=== PATIENT | male | born 1965 | race Caucasian/White ===

== ENCOUNTER 2017-02-23 14:15 | Emergency (ER) | payer OTHER ==
[~2017-02-23] VITALS: Ht 175.3 cm; Wt 129.7 kg
[~2017-02-23 14:15] MED LIST: ALPRAZOLAM0.5 M3 PO; ASPIRIN EC325 MG PO; ATORVASTATIN CA40 M1 PO; CITALOPRAM HYDR40 MG PO; CLOBETASOL PROP50 ML TOP; CLOPIDOGREL75 M1 PO; COSENTYX (150 MG/1 M; CYCLOBENZAPRINE10 M1 PO; DEPO-TESTADIOL10 ML IM; DIAZEPAM10 M1 PO; DOLOPHINE HCL10 M1 PO; FLEXERIL10 MG PO; FLUOXETINE HCL40 M1 PO; FUROSEMIDE40 MG PO; GABAPENTIN300 MG PO; GABAPENTIN600 M1 PO; HYZAAR 100-251 EACH PO; LIDOCAINE51 TOP; METOPROLOL SUC100 M2 PO; OMEGA-3 1,0501 EACH PO; POTASSIUM CHLO10 ME1 PO; PROTONIX40 M3 PO; STELARA90 MG/ML SC; VALIUM5 M1 PO
[2017-02-23 14:28] VITALS: BP 126/84
--- NOTE | 2017-02-23 17:20 | ED NECK/BACK PAIN COMPLAINT ---
History of Present Illness General Chief Complaint: Low Back Pain/Injury Stated Complaint: LBP/CHRONIC Source: patient Exam Limitations: no limitations Vital Signs & Intake/Output Vital Signs & Intake/Output Vital Signs Date Time Temp Pulse Resp B/P Pulse O2 O2 Flow FiO2 Ox Delivery Rate 02/23 1428 98.1 69 18 126/84 100 Room Air Allergies Coded Allergies: venom-honey bee (bee venom (honey bee)) (SWELLING AT SITE 06/09/16) Uncoded Allergies: ENVIRONMENTAL (ITCHY, WATERY EYES, STUFFY NOSE, DYSPNEA 01/09/16) Reconcile Medications Alprazolam 0.5 MG TAB 1 TAB PO QPM ANXIETY (Reported) Aspirin E.c. (Ecotrin) 325 MG TAB 1 TAB PO DAILY HEART HEALTH Atorvastatin Calcium 40 MG TABLET 40 MG PO 1700 CHOLESTEROL Clobetasol Propionate (Clobetasol Propionate 50 Ml) 50 ML JEANNE 1 GILES TOP PRN PSORIASIS (Reported) CLOPIDOGREL BISULFATE (Clopidogrel) 75 MG TABLET 1 TAB PO DAILY PLATELET INHIBITOR (Reported) Diazepam 10 MG TABLET 1 TAB PO PRN MUSCLE SPASMS (Reported) FLUOXETINE HCL (Fluoxetine Hydrochloride) 40 MG CAP 1 CAP PO DAILY MENTAL HEALTH (Reported) Gabapentin (Gabapentin Tab 600MG) 600 MG TAB 1 TAB PO TID NERVE PAIN ( Reported) LOSARTAN/HYDROCHLOROTHIAZIDE (Hyzaar 100-25 Tablet) 1 EACH TABLET 1 TAB PO DAILY BP (Reported) Methadone Hydrochloride (Dolophine) 10 MG TABLET 3 TAB PO BID SPINAL STENOSIS/ HERNIATED DISC (Reported) Metoprolol Succinate (Metoprolol Succinate XL) 100 MG TAB.ER.24H 1 TAB PO DAILY BP (Reported) Pantoprazole Sodium (Protonix) 40 MG TABLET.DR 40 MG PO DAILY AC GERD Pantoprazole Sodium (Protonix) 40 MG TABLET.DR 1 TAB PO DAILY GERD Secukinumab (Cosentyx (2 Syringes)) 150 MG/1 ML SYRINGE 2 INJ Q30D PSORIASIS (Reported) Testosterone (Depo-Testadiol Inj 2 MG/Ml-50 MG/Ml) 200 MG/ML VIAL 2 ML IM Q2W HRT (Reported) Triage Note: 52 Y/O MALE C/O BACK PAIN ("SPASMS ACROSS THE LOWER BACK"); ONSET LAST NIGHT. STATES HIS PAIN MANAGEMENT DOCTOR GIVES HIM VALIUM FOR WHEN THIS HAPPENS HOWEVER PT WAS UNABLE TO GET APPT AND NEEDS A NOTE FOR WORK. STATES HE HAS THE MEDICATION AT HOME BUT NEEDS THE WORK NOTE. 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 yes HPI: This patient is a 52-year-old male who presented to the emergency department today requesting a work note. The patient was seen by pain management previously and given a prescription for Valium as he throughout his back at work. The patient is reported that he has a medication, but when he tried to see his doctor again for a work note, they were closed. He reported that he is having muscular spasms in his lower back. He denied any bowel or bladder incontinence. No saddle paresthesias. No numbness or tingling in his extremities. (PIPER CANAS PA-C) Past History Travel History Traveled to [place] past 21 day No Medical History Any Pertinent Medical History? 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 No (PIPER CANAS PA-C) Review of Systems Review of Systems Constitutional: Reports: no symptoms. Eyes: Reports: no symptoms. Ears, Nose, Throat, Mouth: Reports: no symptoms. Respiratory: Reports: no symptoms. Cardiovascular: Reports: no symptoms. Gastrointestinal/Abdominal: Reports: no symptoms. Musculoskeletal: Reports: see HPI. Skin: Reports: no symptoms. Neurological/Psychological: Reports: no symptoms. All Other Systems: Reviewed and Negative (PIPER CANAS PA-C) Physical Exam Physical Exam Neck: normal inspection, supple, full range of motion, normal alignment Comments: Well-developed well-nourished person in no acute distress HEENT: Moist mucous membranes Back: Antalgic gait. Bilateral lumbar paraspinal musculature tenderness. No midline tenderness. Muscular spasm noted Respiratory: No respiratory distress. Speaking in full sentences Extremities: No edema, full range of motion Neuro: Alert and oriented x3 Psych: Mood affect normal, normal memory normal judgment. Skin: Warm and dry, no rash on exposed skin (PIPER CANAS PA-C) Progress Differential Diagnosis: cauda equina syn, herniated disc, myofascial strain, pyelo/UTI, sciatica, spinal cord inj, thoracic outlet syn, T/L spine injury, ureterolithiasis Plan of Care: This patient is a 52-year-old male who presented to the emergency department today requesting for a work note. He was previously diagnosed with muscular strain after a work injury. He sees pain management where he was prescribed Valium. The patient is requesting a note for work. He offers no other complaints and has no other requests. Stable for discharge home. (PIPER CANAS PA-C) Departure Departure Disposition: HOME OR SELF CARE Condition: Stable Clinical Impression Primary Impression: Back muscle spasm Referrals: ABIODUN HUGHES,BEAN Vinson (PCP/Family) Additional Instructions: Take previously prescribed medication as directed. Follow-up with your primary care physician. Return for any worsening symptoms or concerns. Departure Forms: Customer Survey General Discharge Information Release- Work (PIPER CANAS PA-C) PA/ACID BLOWER Co-Sign Statement Statement: ED Attending supervision documentation- [] I saw and evaluated the patient. I have also reviewed all the pertinent lab results and diagnostic results. I agree with the findings and the plan of care as documented in the PA's/ACID BLOWER's documentation. [X] I have reviewed the ED Record and agree with the PA's/ACID BLOWER's documentation. [] Additions or exceptions (if any) to the PAs/ACID BLOWER's note and plan are summarized below: [] (DENNISE HUGHES,TORITO [place])
== END 2017-02-23 17:23 ==
LOC: ERH 14:15
DX: M62.830 Muscle spasm of back (principal)
CPT/HCPCS: 99282

== ENCOUNTER 2017-03-07 11:59 | Observation (INO) | payer OTHER ==
[~2017-03-07] VITALS: Ht 175.3 cm; Wt 127.0 kg
[2017-03-07 13:18] LABS: ABSOLUTE BASOPHIL COUNT 0 /CUMM (0.0-0.2); ABSOLUTE EOSINOPHIL COUNT 0.1 /CUMM (0.0-0.7); ABSOLUTE LYMPH COUNT 1.4 /CUMM (1.2-3.4); ABSOLUTE MONOCYTE COUNT 0.4 /CUMM (0.10-0.60); BASOPHIL % 0.7 % (0.0-2.0); EOSINOPHIL % 1.3 % (0-5); GRANULOCYTE % 60.4 % (42.2-75.2); HEMATOCRIT 45.7 % (42-52); MEAN CORPUSCULAR HGB 27.1 PG (27.0-31.0); MEAN PLATELET VOLUME 7.1 FL (7.4-10.4); PLATELET COUNT 177 /CUMM (130-400); RBC DISTRIBUTION WIDTH 14.8 % (11.5-14.5); RED BLOOD CELL CT 5.58 /CUMM (4.70-6.10); WHITE BLOOD CELL COUNT 4.9 /CUMM (4.8-10.8)
--- NOTE | 2017-03-07 13:38 | ED CARDIAC/CP/PALPITATIONS ---
History of Present Illness General Chief Complaint: General Adult Stated Complaint: INDIGESTION SINCE SAT, LEFT ARM NUMBNESS Source: patient, old records Exam Limitations: no limitations Vital Signs & Intake/Output Vital Signs & Intake/Output Vital Signs Date Time Temp Pulse Resp B/P Pulse O2 O2 Flow FiO2 Ox Delivery Rate 03/07 1903 98.9 72 20 172/100 95 Room Air 03/07 1704 68 164/98 03/07 1704 68 164/98 03/07 1650 164/98 03/07 1624 99.8 74 22 181/102 96 Room Air 03/07 1509 98.0 81 20 164/102 03/07 1420 74 18 184/93 96 Room Air 03/07 1356 99.0 74 18 173/105 100 03/07 1310 Room Air 03/07 1205 96.0 83 20 156/106 96 Room Air Allergies Coded Allergies: venom-honey bee (bee venom (honey bee)) (SWELLING AT SITE 06/09/16) Uncoded Allergies: ENVIRONMENTAL (ITCHY, WATERY EYES, STUFFY NOSE, DYSPNEA 01/09/16) Reconcile Medications Atorvastatin Calcium 40 MG TABLET 40 MG PO 1700 CHOLESTEROL Clopidogrel Bisulfate (Clopidogrel) 75 MG TABLET 1 TAB PO DAILY BLOOD THINNER (Reported) Diazepam 10 MG TABLET 1 TAB PO PRN BACK SPASMS (Reported) Fluoxetine HCl (Unknown Strength) CAPSULE (Unknown Dose) PO DAILY MENTAL HEALTH (Reported) Gabapentin 600 MG TABLET 1 TAB PO TID NERVE PAIN (Reported) Glipizide (Glipizide ER) 2.5 MG TAB.ER.24 1 TAB PO DAILY DM (Reported) Losartan/Hydrochlorothiazide (Hyzaar 100-25 Tablet) 100 MG-25 MG TABLET 1 TAB PO DAILY BP (Reported) Methadone HCl (Dolophine HCl) 10 MG TABLET 30 MG PO BID SPINAL STENOSIS/ HERNIATED DISC (Reported) Metoprolol Succinate 100 MG TAB.ER.24H 1 TAB PO DAILY HEART/BP (Reported) Pantoprazole Sodium (Protonix) 40 MG TABLET.DR 1 TAB PO DAILY GERD Secukinumab (Cosentyx (2 Syringes)) 150 MG/1 ML SYRINGE 2 INJ Q30D PSORIASIS (Reported) Triage Note: PT TO ED C/O INDIGESTION SINCE TUESDAY. HAS BEEN TAKING PEPTOBISMOL WITH NO RELIEF. PT ALSO TAKES PROTONIX DAILY. ALSO C/O LEFT ARM NUMBNESS. DENIES ANY PAIN. Triage Nurses Notes Reviewed? yes Onset: Abrupt Duration: day(s): (3), constant, waxing and waning Timing: recent history Quality/Severity: mild, moderate, burning, ingestion Location: epigastric Radiation: no radiation Activities at Onset: none Prior Chest Pain/Card Workup: similar sx Nitro Today/Relief: no nitro taken today Aspirin Today: 81 mg x 1, provided at home HPI: 52 Year old male with history of hypertension, hyperlipidemia, chronic pain issues, psoriasis, reflux disease, and a prior stent in 2007 presents emergency room complaining of a "indigestion" feeling as well as nausea for the past 3 days. The patient denies any radiation of pain up into his chest and states that he feels bloated that this feels like the reflux he has had in the past. He denies any shortness of breath the symptoms are not worse with exertion. He' s been taking Protonix and Pepto-Bismol without improvement. No back pain cough hemoptysis vomiting diarrhea. 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 he quit smoking 1 year ago. he has been compliant with all of his medications including asa and plavix which he took today Past History Travel History Traveled to [place] past 21 day No Medical History Any Pertinent Medical History? 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 No Review of Systems Review of Systems Constitutional: Reports: see HPI. All Other Systems: Reviewed and Negative Comments Review of systems: See HPI, All other systems negative. Constitutional, no chills no fever, no malaise HEENT: No visual changes no sore throat no congestion Cardiovascular: No chest pain , no palpitation , no orthopnea no ankle swelling Skin, no jaundice no rashes, no change in skin Respiratory: No dyspnea no cough no sputum no hemoptysis GI: nausea no vomiting, no diarrhea, no bloating/constipation : No dysuria Muscle skeletal: No joint pain, no back pain, no neck pain, Neurologic: No numbness no headache Psych: No stress Heme/endocrine: No bruising no bleeding Immunology: No lymphadenopathy Physical Exam Physical Exam General Appearance: well developed/nourished, no apparent distress, alert Cardiovascular: regular rate/rhythm Comments: Well-developed well-nourished person in no acute distress HEENT: Normal EENT exam; PERRL, EOMI, HEAD is atraumatic. moist mucous membranes. Neck: Supple, normal range of motion Back: Nontender, Full range of motion Cardiovascular: Regular rate and rhythms no murmurs rubs or gallops Respiratory: Chest nontender.There were no bony deformities, no asymmetry. No respiratory distress. Patient speaking in full complete sentences. Breath sounds clear to auscultation bilaterally: NO W/R/R Abdomen: Soft, nontender nondistended, no appreciable organomegaly. Normal bowel sounds. No rebound/guarding, Extremity: No edema, full range of motion of extremities Neuro: Alert oriented x3, motor sensory normal,There were no obvious focal neurologic abnormalities. Skin: No appreciable rash on exposed skin, skin is warm and dry. Psych: Mood and affect is normal, memory and judgment is normal. Core Measures ACS in differential dx? Yes Severe Sepsis Present: No Septic Shock Present: No Progress Differential Diagnosis: AMI, aortic dissection, atrial fibrillation, cholecystitis, CHF/pulm edema, costochondritis, musculoskeletal pain, myocarditis, pancreatitis, pericarditis, pneumonia, pneumothorax, PSVT, pulmonary embolism, PUD/GERD, PVCs/PACs, unstable angina, V-fib/V-Tach, KIDNEY STONE Plan of Care: Orders Procedure Date/time Status Heart Healthy Diet 03/[address] in observation 03/07 1836 Active Patient Data 03/07 1833 Active TROPONIN LEVEL 03/07 1700 Complete EKG 03/07 1700 Active URINALYSIS 03/07 1539 Active Add-on Test (ER Only) 03/07 1418 Active Telemetry/Machine Deburrer 03/07 1330 Active LIPASE 03/07 1308 Complete AMYLASE 03/07 1308 Complete TROPONIN LEVEL 03/07 1303 Complete COMPREHENSIVE METABOLIC PANEL 03/07 1303 Complete CBC WITHOUT DIFFERENTIAL 03/07 1303 Complete EKG 03/07 1208 Active Laboratory Tests 03/07/17 1715: Troponin I < 0.01 03/07/17 1308: Anion Gap 11, Estimated GFR > 60, BUN/Creatinine Ratio 16.7, Glucose 129 H, Calcium 9.1, Total Bilirubin 0.6, AST 34, ALT 58, Alkaline Phosphatase 107, Troponin I < 0.01, Total Protein 7.5, Albumin 4.0, Globulin 3.5, Albumin/ Globulin Ratio 1.1, Amylase 50, Lipase 48, CBC w Diff NO MAN DIFF REQ, RBC 5.58, MCV 82.0, MCH 27.1, RDW 14.8 H, MPV 7.1 L, Gran % 60.4, Lymphocytes % 28.5, Monocytes % 9.1, Eosinophils % 1.3, Basophils % 0.7, Absolute Granulocytes 3.0, Absolute Lymphocytes 1.4, Absolute Monocytes 0.4, Absolute Eosinophils 0.1, Absolute Basophils 0, PUBS MCHC 33.0 Labs ordered old record reviewed Pepcid IV GI cocktail 1 ordered case discussed with Dr. Leone 03/07/2017 1:48:30 PM Case discussed with Dr. Vuong in Department who reviewed the EKG and saw the patient advised we'll get 2 troponins the patient reports improvement in symptoms with GI cocktail currently if symptoms return we'll treat with nitroglycerin 03/07/2017 2:23:39 PM patient reports pain is returning after GI cocktail NITRO1 ordered discussed the patient all his labs date and need for repeat troponin EKG at 5:00 03/07/2017 3:47:30 PM call to the patient's room after he attempted to urinate he states that he is having extreme dysuria, denies hematuria urgency frequency. These symptoms suddenly came on while here in the ER. Patient has persistent left upper quadrant pain however improved after Protonix Toradol CAT scan ordered case discussed Dr. Leone Case discussed with Dr. Vuong given repeat troponin was place in observation to telemetry. case d/w dr arriola will place in obs (TYSON HUBER) Diagnostic Imaging: Viewed by Me: Radiology Read. Discussed w/RAD: Radiology Read. Radiology Impression: PATIENT: NERY CHAUHAN PRESENT AGE: 52 PATIENT ACCOUNT NO: [id number] : 64 LOCATION: ER ORDERING PHYSICIAN: TYSON AREVALO SERVICE DATE: 03/07/17 EXAM TYPE: RAD - XRY-PORTABLE CHEST XRAY EXAMINATION: XR PORTABLE CHEST CLINICAL INFORMATION: Chest pain COMPARISON: 05/04/2016 TECHNIQUE: Portable AP view of the chest was obtained. FINDINGS: The lungs are well expanded. There is no focal consolidation, edema, or effusion. No pneumothorax. The cardiomediastinal silhouette is within normal limits for this technique. No acute osseous abnormality. IMPRESSION: No acute pulmonary findings. DICTATED BY: RACHEL RODRIGUEZ MD DATE/TIME DICTATED:03/07/171429 SUPERVISOR LENS GENERATING:KUSH DATE/ TIME TRANSCRIBED:03/07/171429 CONFIDENTIAL, DO NOT COPY WITHOUT APPROPRIATE AUTHORIZATION. <Electronically signed in Other Vendor System> SIGNED BY: RACHEL RODRIGUEZ MD 03/07/17 1436, PATIENT: NERY CHAUHAN PRESENT AGE: 52 PATIENT ACCOUNT NO: [id number] : 64 LOCATION: [facility] ORDERING PHYSICIAN: TYSON AREVALO SERVICE DATE: 03/07/17 EXAM TYPE: CAT - CT ABD & PELVIS W/O IV CONTRAS EXAMINATION: CT ABDOMEN AND PELVIS WITHOUT CONTRAST CLINICAL INFORMATION: Left upper quadrant abdominal pain. Evaluate for pancreatitis and/or kidney stone. COMPARISON: 09/09/2016. TECHNIQUE: Multidetector volumetric imaging was performed from the superior aspect of the liver through the pubic symphysis. Sagittal and coronal reformatted images were obtained on the technologist's workstation. 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 LUNG BASES: No acute findings in the visualized lung bases. There appears to be a stent within the proximal left anterior descending coronary artery. A stable 0.3 cm nodule is present within the left lower lobe (image 21, series 2). LIVER, GALLBLADDER, AND BILIARY TREE: There is hepatomegaly and diffuse hepatic steatosis. No suspicious hepatic lesion or intrahepatic bile duct dilatation. Gallbladder is unremarkable. PANCREAS: No evidence of pancreatic ductal dilatation, peripancreatic edema or peripancreatic fluid collection. SPLEEN: Prominent spleen is 15 cm in maximum dimension. ADRENAL GLANDS: Unremarkable. KIDNEYS AND URETERS: The kidneys are normal in size, shape, and attenuation. No hydronephrosis, hydroureter, or calculi seen. No perinephric stranding. BLADDER: Urinary bladder is empty. No bladder calculi. GASTROINTESTINAL TRACT: Stomach is well distended and has normal wall thickness. Loops of bowel are normal in caliber. The terminal ileum and appendix are normal. No pericolonic fat stranding. Diverticulosis of the sigmoid colon without diverticulitis. No ascites or pneumoperitoneum. ABDOMINAL WALL: Again noted is the mesh in the midline of the abdominal wall and chronic diastases of the rectus abdominis muscles. There is a stable fat-containing hernia in the supraumbilical midline abdominal wall. LYMPH NODES: No pathologic sized lymph nodes within the abdomen or pelvis. VASCULAR: Mild atherosclerotic calcification of the abdominal aorta without aneurysm. PELVIC VISCERA: Prostate gland is normal in size. No pelvic free fluid. OSSEOUS STRUCTURES: There are 6 nonrib-bearing vertebra of the degenerated lumbar spine. There is right-sided transitional lumbosacral anatomy. At the L4-L5 level, there is moderate degenerative disc space narrowing, disc bulge and vacuum disc phenomenon. Facet arthropathy is most pronounced at the L5-L6 level. IMPRESSION: 1. Chronic hepatosplenomegaly and diffuse hepatic steatosis. 2. Diverticulosis of the sigmoid colon without diverticulitis. 3. No evidence of urolithiasis, appendicitis or other acute imaging abnormality compared to 09/09/2016. DICTATED BY: ENA COMER MD DATE/TIME DICTATED:03/07/171627 SUPERVISOR LENS GENERATING: KUSH DATE/TIME TRANSCRIBED:03/07/171627 CONFIDENTIAL, DO NOT COPY WITHOUT APPROPRIATE AUTHORIZATION. <Electronically signed in Other Vendor System> SIGNED BY: ENA COMER MD 03/07/17 1644 Initial ED EKG: normal sinus at 70, no acute ST segment changes normal axis Prior EKG: unchanged (04/2016) Repeat EKG: unchanged (NS CHANGES) Rhythm Strip: normal sinus rhythm Departure Departure Time of Disposition: 1825 Disposition: STILL A PATIENT Condition: Stable Clinical Impression Primary Impression: Chest pain Secondary Impressions: Hepatic steatosis Referrals: BEAN RASCON MD (PCP/Family) Departure Forms: Customer Survey General Discharge Information Observation Note Spoke With: PETE GARCIA MD Physician Advisor Notified: LUIS FELIPE HUGHES,CAROLYN [place] Place Patient In: Non-ED OBS Care Area Rationale for Observation: My rational for observation is as follows trend labs telemetry monitoring cardiology consult possible stress test versus echocardiogram premature discharge would BE medically harmful Critical Care Note Critical Care Note Critical Care Time: non-applicable
--- NOTE | 2017-03-07 14:36 | RADIOLOGY REPORT ---
EXAMINATION: XR PORTABLE CHEST CLINICAL INFORMATION: Chest pain COMPARISON: 05/04/2016 TECHNIQUE: Portable AP view of the chest was obtained. FINDINGS: The lungs are well expanded. There is no focal consolidation, edema, or effusion. No pneumothorax. The cardiomediastinal silhouette is within normal limits for this technique. No acute osseous abnormality. IMPRESSION: No acute pulmonary findings.
[2017-03-07] MEDS ORDERED: GLIPIZIDE ER2.5 M1 PO (15:47)
--- NOTE | 2017-03-07 16:43 | CT SCAN REPORT ---
EXAMINATION: CT ABDOMEN AND PELVIS WITHOUT CONTRAST CLINICAL INFORMATION: Left upper quadrant abdominal pain. Evaluate for pancreatitis and/or kidney stone. COMPARISON: 09/09/2016. TECHNIQUE: Multidetector volumetric imaging was performed from the superior aspect of the liver through the pubic symphysis. Sagittal and coronal reformatted images were obtained on the technologist's workstation. DLP: 1432 mGy-cm FINDINGS: TARPER: Obese body habitus. LUNG BASES: No acute findings in the visualized lung bases. There appears to be a stent within the proximal left anterior descending coronary artery. A stable 0.3 cm nodule is present within the left lower lobe (image 21, series 2). LIVER, GALLBLADDER, AND BILIARY TREE: There is hepatomegaly and diffuse hepatic steatosis. No suspicious hepatic lesion or intrahepatic bile duct dilatation. Gallbladder is unremarkable. PANCREAS: No evidence of pancreatic ductal dilatation, peripancreatic edema or peripancreatic fluid collection. SPLEEN: Prominent spleen is 15 cm in maximum dimension. ADRENAL GLANDS: Unremarkable. KIDNEYS AND URETERS: The kidneys are normal in size, shape, and attenuation. No hydronephrosis, hydroureter, or calculi seen. No perinephric stranding. BLADDER: Urinary bladder is empty. No bladder calculi. GASTROINTESTINAL TRACT: Stomach is well distended and has normal wall thickness. Loops of bowel are normal in caliber. The terminal ileum and appendix are normal. No pericolonic fat stranding. Diverticulosis of the sigmoid colon without diverticulitis. No ascites or pneumoperitoneum. ABDOMINAL WALL: Again noted is the mesh in the midline of the abdominal wall and chronic diastases of the rectus abdominis muscles. There is a stable fat-containing hernia in the supraumbilical midline abdominal wall. LYMPH NODES: No pathologic sized lymph nodes within the abdomen or pelvis. VASCULAR: Mild atherosclerotic calcification of the abdominal aorta without aneurysm. PELVIC VISCERA: Prostate gland is normal in size. No pelvic free fluid. OSSEOUS STRUCTURES: There are 6 nonrib-bearing vertebra of the degenerated lumbar spine. There is right-sided transitional lumbosacral anatomy. At the L4-L5 level, there is moderate degenerative disc space narrowing, disc bulge and vacuum disc phenomenon. Facet arthropathy is most pronounced at the L5-L6 level. IMPRESSION: 1. Chronic hepatosplenomegaly and diffuse hepatic steatosis. 2. Diverticulosis of the sigmoid colon without diverticulitis. 3. No evidence of urolithiasis, appendicitis or other acute imaging abnormality compared to 09/09/2016.
--- NOTE | 2017-03-07 18:42 | Cons- Cardiology ---
General Information and HPI Consulting Request Date of Consult: 03/07/17 Requested By: mg AREVALO Reason for Consult: Persistent chest discomfort with history of CAD Source of Information: patient, old records History of Present Illness: 52 year old male known to me with history of CAD. History of proximal LAD stent in 2007. Subsequently recathed in 2008 and 2010. Stent patent at that time but residual 50-70% distal LAD stenosis present with no other significant obstructive CAD at that time. Last year the patient had a pharmacologic nuclear stress test performed in preparation for surgery which showed inferior abnormalities that were likley related to diaphragmatic artifact. The patient tolerated the surgery without issues and has been stable since that time up until the last several days . He now presents to the ER with complaints of epigastric / substernal chest discomfort radiating to the neck with associated left arm and shoulder symptoms. In the ER the patient's ECG showed no significant change and the initial troponin was normal despite 3-4 days of waxing and waning symptoms. He was given multiple meds including a GI cocktail and TNG SL with transient but incomplete relief of the symptoms. Followuop ECG and troponin remained unremarkable. Allergies/Medications Allergies: Coded Allergies: venom-honey bee (bee venom (honey bee)) (SWELLING AT SITE 06/09/16) Uncoded Allergies: ENVIRONMENTAL (ITCHY, WATERY EYES, STUFFY NOSE, DYSPNEA 01/09/16) Home Med List: Atorvastatin Calcium 40 MG TABLET 40 MG PO 1700 CHOLESTEROL Clopidogrel Bisulfate (Clopidogrel) 75 MG TABLET 1 TAB PO DAILY BLOOD THINNER (Reported) Diazepam 10 MG TABLET 1 TAB PO PRN BACK SPASMS (Reported) Fluoxetine HCl (Unknown Strength) CAPSULE (Unknown Dose) PO DAILY MENTAL HEALTH (Reported) Gabapentin 600 MG TABLET 1 TAB PO TID NERVE PAIN (Reported) Glipizide (Glipizide ER) 2.5 MG TAB.ER.24 1 TAB PO DAILY DM (Reported) Losartan/Hydrochlorothiazide (Hyzaar 100-25 Tablet) 100 MG-25 MG TABLET 1 TAB PO DAILY BP (Reported) Methadone HCl (Dolophine HCl) 10 MG TABLET 30 MG PO BID SPINAL STENOSIS/ HERNIATED DISC (Reported) Metoprolol Succinate 100 MG TAB.ER.24H 1 TAB PO DAILY HEART/BP (Reported) Pantoprazole Sodium (Protonix) 40 MG TABLET.DR 1 TAB PO DAILY GERD Secukinumab (Cosentyx (2 Syringes)) 150 MG/1 ML SYRINGE 2 INJ Q30D PSORIASIS (Reported) Current Medications: Current Medications Sig/Mani Start time Last Medication Dose Route Stop Time Status Admin Famotidine 0 .STK-MED ONE 03/07 1341 DC IV Famotidine 20 MG ONCE ONE 03/07 1330 DC 03/07 IV 03/07 1331 1340 Hydrochlorothiazide 25 MG ONCE ONE 03/07 1700 DC 03/07 PO 03/07 1701 1704 Ketorolac 0 .STK-MED ONE 03/07 1520 DC Tromethamine .ROUTE Ketorolac 30 MG ONCE ONE 03/07 1515 DC 03/07 Tromethamine IV 03/07 1516 1524 Losartan Potassium 100 MG ONCE ONE 03/07 1700 DC 03/07 PO 03/07 1701 1704 Losartan Potassium 0 .STK-MED ONE 03/07 1659 DC PO Metoprolol Tartrate 100 MG ONCE ONE 03/07 1700 DC 03/07 PO 03/07 1701 1704 Metoprolol Tartrate 0 .STK-MED ONE 03/07 1659 DC PO Nitroglycerin 0.4 MG ONCE ONE 03/07 1430 DC 03/07 SL 03/07 1431 1422 Nitroglycerin 0 .STK-MED ONE 03/07 1421 DC SL Pantoprazole Sodium 0 .STK-MED ONE 03/07 1521 DC IV Pantoprazole Sodium 40 MG ONCE ONE 03/07 1515 DC 03/07 IV 03/07 1516 1524 Past History Travel History Traveled to [place] past 21 day No Medical History Neurological: NONE EENT: NONE Cardiovascular: CAD, hypertension, hyperlipidemia, STENTS 2007 Respiratory: obstructive sleep apnea Gastrointestinal: diverticulitis, GERD Hepatic: NONE Renal: NONE Musculoskeletal: chronic back pain, disk herniation, SPINAL STENOSIS ARTHRITIS Psychiatric: anxiety, depression Endocrine: PRE-DIABETIC Blood Disorders: NONE Cancer(s): NONE RESEARCH AND DEVELOPMENT DIRECTOR/Reproductive: NONE Other Medical Hx: PSORIASIS Surgical History Surgical History: hernia repair-umbilical, heart stents in 2007 Psychosocial History Services at Home: None ETOH Use: occasional use Illicit Drug Use: denies illicit drug use Exam & Diagnostic Data Vital Signs and I&O Vital Signs Date Time Temp Pulse Resp B/P Pulse O2 O2 Flow FiO2 Ox Delivery Rate 03/07 1704 68 164/98 03/07 1704 68 164/98 04/10 1650 164/98 03/07 1624 99.8 74 22 181/102 96 Room Air 03/07 1509 98.0 81 20 164/102 03/07 1420 74 18 184/93 96 Room Air 03/07 1356 99.0 74 18 173/105 100 03/07 1310 Room Air 03/07 1205 96.0 83 20 156/106 96 Room Air Intake & Output 03/07 1600 03/07 0800 03/07 0000 03/06 1600 03/06 0800 03/06 0000 Intake Total Output Total Balance Patient 280 lb Weight Physical Exam: WD, WN, WM Alert and oriented x 3 VSS Overweight. ? mildly Cushingoid appearance HEENT: normal Neck: JVP normal; carotids normal bilaterally Chest: Clear bilaterally with no chest wall tenderness Heart: Regular S1, S2, 1/6 systolic murmur Abdomen: Mild diffuse tenderness; No rebound; BS+ Ext: Normal Labs/Moise Results: Laboratory Tests 03/07 03/07 1715 1308 Chemistry Sodium (137 - 145 mmol/L) 137 Potassium (3.5 - 5.1 mmol/L) 3.8 Chloride (98 - 107 mmol/L) 96 L Carbon Dioxide (22 - 30 mmol/L) 30 Anion Gap (5 - 16) 11 BUN (9 - 20 mg/dL) 10 Creatinine (0.7 - 1.2 mg/dL) 0.6 L Estimated GFR (>60 ml/min) > 60 BUN/Creatinine Ratio (7 - 25 %) 16.7 Glucose (65 - 99 mg/dL) 129 H Calcium (8.4 - 10.2 mg/dL) 9.1 Total Bilirubin (0.2 - 1.3 mg/dL) 0.6 AST (17 - 59 U/L) 34 ALT (21 - 72 U/L) 58 Alkaline Phosphatase (< 127 U/L) 107 Troponin I (<0.11 ng/ml) < 0.01 < 0.01 Total Protein (6.3 - 8.2 g/dL) 7.5 Albumin (3.5 - 5.0 g/dL) 4.0 Globulin (1.9 - 4.2 gm/dL) 3.5 Albumin/Globulin Ratio (1.1 - 2.2 %) 1.1 Amylase (30 - 110 U/L) 50 Lipase (23 - 300 U/L) 48 Hematology CBC w Diff NO MAN DIFF REQ WBC (4.8 - 10.8 /CUMM) 4.9 RBC (4.70 - 6.10 /CUMM) 5.58 Hgb (14.0 - 18.0 G/DL) 15.1 Hct (42 - 52 %) 45.7 MCV (80.0 - 94.0 FL) 82.0 MCH (27.0 - 31.0 PG) 27.1 RDW (11.5 - 14.5 %) 14.8 H Plt Count (130 - 400 /CUMM) 177 MPV (7.4 - 10.4 FL) 7.1 L Gran % (42.2 - 75.2 %) 60.4 Lymphocytes % (20.5 - 51.1 %) 28.5 Monocytes % (1.7 - 9.3 %) 9.1 Eosinophils % (0 - 5 %) 1.3 Basophils % (0.0 - 2.0 %) 0.7 Absolute Granulocytes (1.4 - 6.5 /CUMM) 3.0 Absolute Lymphocytes (1.2 - 3.4 /CUMM) 1.4 Absolute Monocytes (0.10 - 0.60 /CUMM) 0.4 Absolute Eosinophils (0.0 - 0.7 /CUMM) 0.1 Absolute Basophils (0.0 - 0.2 /CUMM) 0 PUBS MCHC (33.0 - 37.0 G/DL) 33.0 Diagnostic Data EKG Results NSR with NSSTTWCs. CXR Results FINDINGS: The lungs are well expanded. There is no focal consolidation, edema, or effusion. No pneumothorax. The cardiomediastinal silhouette is within normal limits for this technique. No acute osseous abnormality. IMPRESSION: No acute pulmonary findings. Other Results Abdominal CT: IMPRESSION: 1. Chronic hepatosplenomegaly and diffuse hepatic steatosis. 2. Diverticulosis of the sigmoid colon without diverticulitis. 3. No evidence of urolithiasis, appendicitis or other acute imaging 4. No AAA abnormality compared to 09/09/2016. Assessment/Plan Assessment/Plan Assessment: 1. Chest pain syndrome - At the present time the patient's symptoms are of unclear etiology. The patient feels that they are likely GI in nature with frequent belching and a sense of nausea. He had temporary relief with GI cocktail, etc but the symptoms recurred. He also had transient improvement with TNG SL. I suspect that the symptoms are unlikely to be cardiac in nature in view of their protracted nature with no ECG changes or troponin elevation. However, he does have a history of distal LAD disease and apical abnormalities may be electrocardiographically "silent". 2. History of CAD; History of LAD stent 2007 3. HTN 4. HLD 5. ANGELA 6. GERD Recommendations: - Admit to telemetry - Serial troponins - Serial ECGS - Continue GI meds - Consider formal GI evaluation - Echocardiogram - Add TNG paste q6 hours - COntinue other cardiac meds - NO IV heparin for now in the absence of any demostrable evidence of ischemia. - Further plans after the above. ? further cardiac evaluation with repeat stress test or cardiac cath to be decided upon. Consult Acknowledgment - Thank you for your consult request.
--- NOTE | 2017-03-07 20:00 | History & Physical ---
YOSI HUGHES,[facility] 03/07/171958: General Information and HPI MD Statement: I have seen and personally examined NERY CHAUHAN and documented this H& P. The patient is a 52 year old M who presented with a patient stated chief complaint of [HEARTBURN, ABDOMINAL PAIN]. Source of Information: patient, old records History of Present Illness: Patient is a 52 year old gentleman with PMH of HTN, HLD, CAD s/p stents placed in 2007, DM, psoriasis, GERD, who came to the ED due to heartburn and abdominal pain. Patient reports that since Tuesday am he started to have symptoms of bloating and abdominal discomfort, he was also nauseous, took some Maalox and decided to stay home, next day his symptoms were improved and he was able to take small amount of food. This morning the patient started to have same symptoms again with bloating, abdominal discomfort and heartburn. He had to drop his 24h urine sample at the office of Dr. 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 In the ED he received a GI cocktail which did not improve his symptoms, he reports relief of symptoms after a SL nitroglycerin. He denies chest tightness, palpitation, diaphoresis, SOB, dizziness. Denies fever, chills, back pain. Patient reports having epigastric pain and lower chest pain (5/10) on Tuesday which then moved to lower abdomen and currently has no pain. Patient reports burning pain with urination that happened two times while in the ED. He reports no numbness or tingling sensation in the left arm currently. Allergies/Medications Allergies: Coded Allergies: venom-honey bee (bee venom (honey bee)) (SWELLING AT SITE 06/09/16) Uncoded Allergies: ENVIRONMENTAL (ITCHY, WATERY EYES, STUFFY NOSE, DYSPNEA 01/09/16) Home Med list Atorvastatin Calcium 40 MG TABLET 40 MG PO 1700 CHOLESTEROL Clopidogrel Bisulfate (Clopidogrel) 75 MG TABLET 1 TAB PO DAILY BLOOD THINNER (Reported) Diazepam 10 MG TABLET 1 TAB PO PRN BACK SPASMS (Reported) Fluoxetine HCl (Unknown Strength) CAPSULE 20 MG PO DAILY MENTAL HEALTH ( Reported) Gabapentin 600 MG TABLET 1 TAB PO TID NERVE PAIN (Reported) Glipizide (Glipizide ER) 2.5 MG TAB.ER.24 1 TAB PO DAILY DM (Reported) Losartan/Hydrochlorothiazide (Hyzaar 100-25 Tablet) 100 MG-25 MG TABLET 1 TAB PO DAILY BP (Reported) Methadone HCl (Dolophine HCl) 10 MG TABLET 30 MG PO BID SPINAL STENOSIS/ HERNIATED DISC (Reported) Metoprolol Succinate 100 MG TAB.ER.24H 1 TAB PO DAILY HEART/BP (Reported) Pantoprazole Sodium (Protonix) 40 MG TABLET.DR 1 TAB PO DAILY GERD Secukinumab (Cosentyx (2 Syringes)) 150 MG/1 ML SYRINGE 2 INJ Q30D PSORIASIS (Reported) Past History Travel History Traveled to [place] past 21 day No Medical History Neurological: NONE EENT: NONE Cardiovascular: CAD, hypertension, hyperlipidemia, STENTS 2007 Respiratory: obstructive sleep apnea Gastrointestinal: diverticulitis, GERD Hepatic: NONE Renal: NONE Musculoskeletal: chronic back pain, disk herniation, SPINAL STENOSIS ARTHRITIS Psychiatric: anxiety, depression Endocrine: PRE-DIABETIC Blood Disorders: NONE Cancer(s): NONE PACKER AND CARRY OUT/Reproductive: NONE Other Medical Hx: PSORIASIS History of MRSA: No History of VRE: No History of CDIFF: No Surgical History Surgical History: hernia repair-umbilical, heart stents in 2007 Past Family/Social History Family History Relations & Conditions if any FATHER FH: HTN (hypertension) FH: myocardial infarction MOTHER FH: HTN (hypertension) FH: myocardial infarction Psychosocial History Services at Home: None Smoking Status: Former Smoker (quit 1 year ago) ETOH Use: occasional use Illicit Drug Use: denies illicit drug use Functional Ability Ambulation: independent Review of Systems Review of Systems Constitutional: Denies: chills, fever. Neurological/Psychological: Reports: numbness, tingling (left arm). Hematologic/Endocrine: Reports: no symptoms. Immunologic/Allergic: Reports: no symptoms. Exam & Diagnostic Data Last 24 Hrs of Vital Signs/I&O Vital Signs Date Time Temp Pulse Resp B/P Pulse O2 O2 Flow FiO2 Ox Delivery Rate 03/07 2337 60 157/84 03/07 2224 62 16 138/80 95 Room Air 03/07 1952 170/100 03/07 1903 98.9 72 20 172/100 95 Room Air 03/07 1704 68 164/98 03/07 1704 68 164/98 03/07 1650 164/98 03/07 1624 99.8 74 22 181/102 96 Room Air 03/07 1509 98.0 81 20 164/102 03/07 1420 74 18 184/93 96 Room Air 03/07 1356 99.0 74 18 173/105 100 03/07 1310 Room Air 03/07 1205 96.0 83 20 156/106 96 Room Air Intake & Output 03/08 0800 03/08 0000 03/07 1600 Intake Total Output Total Balance Patient 127.006 kg Weight Physical Exam General Appearance Alert, Oriented X3, Cooperative, No Acute Distress Skin No Rashes, No Breakdown, No Significant Lesion HEENT Atraumatic, EOMI, Mucous Membr. moist/pink Neck Supple, No JVD, buffalo hump Cardiovascular Regular Rate, Normal S1, Normal S2, No Murmurs Lungs Clear to Auscultation, Normal Air Movement Abdomen Soft, No Tenderness Neurological Normal Speech, Strength at 5/5 X4 Ext, Normal Tone, Sensation Intact, Cranial Nerves 3-12 NL Extremities No Edema, Normal Pulses, No Tenderness/Swelling, no CVA tendreness in the flanks Vascular Pulses Symmetrical Last 24 Hrs of Labs/Moise: Laboratory Tests 03/07/17 2302: Troponin I < 0.01 03/07/172024: Urine Color YEL, Urine Clarity CLEAR, Urine pH 5.5, Ur Specific [place] >= 1.030 , Urine Protein 30 H, Urine Ketones NEG, Urine Nitrite NEG, Urine Bilirubin NEG , Urine Urobilinogen 0.2, Ur Leukocyte Esterase NEG, Ur Microscopic SEDIMENT EXAMINED, Urine RBC RARE, Urine Bacteria RARE H, Hyaline Casts 5-10 H, Urine Mucus FEW, Urine Hemoglobin TRACE-INTACT H, Urine Glucose NEG 03/07/17 1715: Troponin I < 0.01 03/07/17 1308: Anion Gap 11, Estimated GFR > 60, BUN/Creatinine Ratio 16.7, Glucose 129 H, Calcium 9.1, Total Bilirubin 0.6, AST 34, ALT 58, Alkaline Phosphatase 107, Troponin I < 0.01, Total Protein 7.5, Albumin 4.0, Globulin 3.5, Albumin/ Globulin Ratio 1.1, Amylase 50, Lipase 48, CBC w Diff NO MAN DIFF REQ, RBC 5.58, MCV 82.0, MCH 27.1, RDW 14.8 H, MPV 7.1 L, Gran % 60.4, Lymphocytes % 28.5, Monocytes % 9.1, Eosinophils % 1.3, Basophils % 0.7, Absolute Granulocytes 3.0, Absolute Lymphocytes 1.4, Absolute Monocytes 0.4, Absolute Eosinophils 0.1, Absolute Basophils 0, PUBS MCHC 33.0 Microbiology 03/07 2046 URINE ROUT: Urine Culture - ORD Diagnostic Data EKG Results NSR with NSSTTWCs. CXR Results FINDINGS: The lungs are well expanded. There is no focal consolidation, edema, or effusion. No pneumothorax. The cardiomediastinal silhouette is within normal limits for this technique. No acute osseous abnormality. IMPRESSION: No acute pulmonary findings. Other Results Abdominal CT: IMPRESSION: 1. Chronic hepatosplenomegaly and diffuse hepatic steatosis. 2. Diverticulosis of the sigmoid colon without diverticulitis. 3. No evidence of urolithiasis, appendicitis or other acute imaging 4. No AAA abnormality compared to 09/09/2016. Assessment/Plan Assessment: Patient is a 52 year old gentleman with PMH of HTN, HLD, CAD s/p stents placed in 2007, DM, psoriasis, GERD, who came to the ED due to 3 days of having heartburn and abdominal pain. He also reported a transient numbness and tingling in the left arm. He also reported 2 episodes of burning with urine. UA shows bacteria, trace Hb and Pr. Problem list and plan: Atypical chest pain Mostly heartburn and a transient left arm tingling sensation, no chest tightness , diaphoresis or dizziness. Troponin (-), EKG unremarkable. He has a history of CAD and also has DM, obesity and HTN, high risk for a cardiac event. He was in [place] 1 year ago in March 2016 with chest pain, a stress test was performed and reported fixed perfusion abnormality in inferior wall. * monitor on telemetry * repeat troponin and EKG * ECHO * cardiology consult with Dr. Heredia Abnormal UA with dysuria No suprapubic or CVA tenderness, no fever or leukocytosis, Urine grossly normal but shows bacteria, Hb, Pr, Hyaline cast * Repeat UA * Consider Urine culture Diabetes * Hba1c * accuchecks TID AC * NSS HTN, HLD * metoprolol 100 mg daily * atorvastatin 40 mg daily GERD * omeprazole 40 mg daily Psoriasis Patient uses topical steroids and receives Secukinumab injections Q30 days. Diet * cc3 Pain * tylenol, vicodin, percocet DVT px * SC lovenox Full code As Ranked By This Provider Problem List: 1. Chronic back pain 2. GERD (gastroesophageal reflux disease) 3. Chest pain with high risk for cardiac etiology 4. Diabetes mellitus type 2 5. Heartburn 6. Bloating 7. Psoriasis Core Measures/Miscellaneous Acute Coronary Syndrome ACS Diagnosis: No Cerebrovascular Accident CVA/TIA Diagnosis: No Congestive Heart Failure CHF Diagnosis: No Venous Thromboembolism VTE Risk Factors: Acute medical illness, Age > 40 No [facility] VTE prophylaxis d/t: No contraindications No VTE Pharm Prophylaxis d/t: No contraindications VTE Diagnosis: No VTE Type: NONE VTE Confirmed by (Test): NONE Severe Sepsis Severe Sepsis Present: No Septic Shock Septic Shock Present: No Miscellaneous Documentation Attending Case Discussed With: PETE GARCIA MD Primary Care Physician: BEAN RASCON MD A Patient sees these Specialists Dr. Heredia Level of Patient Care: Telemetry BLAINE MALDONADO 03/08/17 0320: Resident Review Statement Resident Statement: examined this patient, discussed with consultant internship, agreed with consultant internship, reviewed EMR data (avail), discussed with nursing, reviewed images, amended to note Other Findings: This is a 52 year old gentleman with past medical history of hyperlipidemia, hypertension, CAD s/p stents placed in 2007(LAD), diabetes mellitus, psoriasis, GERD. Presented to the ED due to chief complaint of heartburn and abdominal pain. Patient reports that since Tuesday morning he started to have symptoms of bloating associated with abdominal discomfort, and he felt nauseated.Patient stated that the chest discomfort radiating to the neck and left arm and shoulder. He came to the emergency department to her he finished his appointment with his egyptologist across the street, requesting further evaluation for his indigestion and chest pain, patient stated that he receive a GI cocktail in the ED that is not relieved his symptoms but after we receive 1 dose of sublingual nitroglycerin his symptoms slightly improved. Physical examination, lab and imaging as above. Assessment: -Chest pain: For now symptoms is most likely due to his GI reflex, but giving the patient comorbidity, the chest pain improve with nitroglycerin and the previous history of LAD stenting, patient will need close monitoring and rule out for any underlying acute coronary syndrome. Also her need repeat echocardiogram as the last one was done more than one year. -Indigestion/GERD: Patient had upper endoscopy that was done 2014 that showed nonerosive gastritis, giving the patient history of diabetes mellitus and the chronic use of steroid he will need further evaluation by cook helper juice as an outpatient to rule out progressing gastritis and gastroparesis. Plan: -Admit patient to telemetry floor -Vitals every shift I and O's -Serial troponin and EKG -Echocardiogram, cardiology consultation -Nitroglycerin paste every 6 -Accu-Chek, insulin sliding scale -Check urine analysis and urine culture. -Continue home medication -Carbohydrate consistent diet -Pain pathway -DVT prophylaxis subcutaneous Lovenox -Full code PETE GARCIA 03/08/17 0452: Attending MD Review Statement Attending Statement Attending MD Statement: examined this patient, discuss w/resident/PA/ASSISTED LIVING CARE MANAGER, agreed w/resident/PA/ASSISTED LIVING CARE MANAGER, reviewed EMR data (avail), reviewed images, amended to note Attending Assessment/Plan: CC: Epigastric pain PMH: HTN, obesity, HLD, chronic back pain, psoriasis, GERD, CAD S/P stent, DM, depression, neuropathy. Patient was in endocrinology office for 24-hour urine cortisol with suspicion of Norlina's syndrome, he was complaining of some epigastric pain and left arm numbness so he was sent to ER. Patient has been getting some abdominal discomfort/gas feeling, nonradiating, non-shifting, no diarrhea nausea or vomiting, since 3 days. His symptoms were better yesterday and worsened again on the day of admission, this time associated with epigastric pain. He also noticed some left arm numbness. His epigastric pain did not improve with GI cocktail, improved with nitroglycerin patch. His discomfort was much better when I saw him. Vitals: Afebrile, HR, RR, oxygen saturation within acceptable range. Blood pressure mildly elevated on exam: A O 3, cooperative, obese, no acute distress, neck supple, no JVD, no lymphadenopathy, mucosa moist, no focal neurological deficit, no dependent edema , no obvious skin rashes or inflammation CVS: S1-S2, RRR. RS: Clear to auscultate bilaterally. Abdomen: Soft, NT, ND, bowel sounds present. Labs: Troponin less than 0.01, CBC BMP LFT unremarkable. EKG: No acute changes CXR: No acute processes. CT abdomen and pelvis: Chronic hepatosplenomegaly, diffuse hepatic steatosis, diverticulosis, no evidence of urolithiasis or appendicitis. A and P Patient complaining of epigastric pain and left arm numbness, no relief with GI cocktail but relieved with nitroglycerin. Even with the symptoms as patient's pain is at rest is less likely cardiac origin, but patient has significant history of CAD with stent placement 2007. He was seen by cardiology in ER. Patient would benefit from outpatient GI workup. 1. chest pain r/o ACS, HX CAD 2. Abdo pain 3. Hx HTN, HLD, DM, psoriasis, obesity - Place in observation to telemetry floor for 24 to 48-hour - Serial EKG, troponin to rule out acute coronary syndrome - Follow cardiology recommendation - Continue aspirin, Plavix, beta shahbaz (metoprolol home dose) - Continue PPI Protonix by mouth twice a day - Continue home antihypertensive medications - Sliding scale aspart insulin for diabetes - Adequate pain control.
[2017-03-08 02:56] VITALS: BP 157/84
[2017-03-08 06:35] LABS: ABSOLUTE BASOPHIL COUNT 0 /CUMM (0.0-0.2); ABSOLUTE EOSINOPHIL COUNT 0.1 /CUMM (0.0-0.7); ABSOLUTE GRANULOCYTE CT 4.9 /CUMM (1.4-6.5); ABSOLUTE LYMPH COUNT 1.5 /CUMM (1.2-3.4); ABSOLUTE MONOCYTE COUNT 0.6 /CUMM (0.10-0.60); BASOPHIL % 0.4 % (0.0-2.0); EOSINOPHIL % 1.4 % (0-5); HEMATOCRIT 45.4 % (42-52); MEAN CORPUSCULAR HGB 27.5 PG (27.0-31.0); MEAN CORPUSCULAR HGB CONC 33.3 G/DL (33.0-37.0); MEAN CORPUSCULAR VOLUME 82.4 FL (80.0-94.0); MEAN PLATELET VOLUME 7.2 FL (7.4-10.4); PLATELET COUNT 190 /CUMM (130-400); RBC DISTRIBUTION WIDTH 15.1 % (11.5-14.5); RED BLOOD CELL CT 5.51 /CUMM (4.70-6.10); WHITE BLOOD CELL COUNT 7.1 /CUMM (4.8-10.8)
--- NOTE | 2017-03-08 07:37 | PN- Housestaff ---
Subjective Follow-up For: Chest/epigastric pain Complaints: no complaints Tele-Events Since Last Visit: Sinus rhythm with heart rate around 59, with prolonged VA 232 ms Subjective: I followed up and examined the patient today. He is resting comfortably in bed, not in distress, no complaints, vitals have been stable overnight, no overnight issues. Review of Systems Constitutional: Reports: see HPI. Objective Last 24 Hrs of Vital Signs/I&O Vital Signs Date Time Temp Pulse Resp B/P Pulse O2 O2 Flow FiO2 Ox Delivery Rate 03/08 170 97.4 56 20 156/94 94 Room Air 03/08 1407 98.2 57 19 131/77 94 Room Air 03/08 1012 98.1 65 16 115/70 03/08 1012 98.1 65 16 115/70 03/08 0629 98.1 65 16 115/70 96 03/08 0256 60 18 157/84 95 Room Air 03/07 2337 60 157/84 03/07 2224 62 16 138/80 95 Room Air 03/07 1952 170/100 03/07 1903 98.9 72 20 172/100 95 Room Air Intake & Output 03/08 1600 03/08 0800 03/08 0000 Intake Total Output Total Balance Patient 127.006 kg Weight Physical Exam General Appearance: Alert, Oriented X3, Cooperative, No Acute Distress, morbidly obese Other Physical Findings: Skin No Rashes, No Breakdown, No Significant Lesion HEENT Atraumatic, EOMI, Mucous Membr. moist/pink Neck Supple, No JVD, buffalo hump Cardiovascular Regular Rate, Normal S1, Normal S2 Lungs Clear to Auscultation anteriorly, Normal Air Movement Abdomen Soft, No Tenderness Neurological grossly intact Extremities No Edema, Normal Pulses, No Tenderness/Swelling Vascular Pulses Symmetrical Current Medications: Current Medications Sig/Mani Start time Last Medication Dose Route Stop Time Status Admin Acetaminophen 500 MG Q6P PRN 03/07 2045 AC PO Acetaminophen/ 1 TAB Q6P PRN 03/07 2045 AC Hydrocodone Bitart PO Atorvastatin Calcium 40 MG 1700 03/08 1700 AC PO Clopidogrel Bisulfate 75 MG DAILY 03/08 1000 AC 03/08 PO 1011 Diazepam 10 MG Q12P PRN 03/07 2100 AC PO Dipyridamole 60 MG ONE ONE 03/09 1000 AC Dextrose/Water 28 ML IV 03/09 1029 Enoxaparin Sodium 0 .STK-MED ONE 03/08 0941 DC SC Enoxaparin Sodium 0 .STK-MED ONE 03/07 2222 DC SC Enoxaparin Sodium 40 MG DAILY 03/07 2033 AC 03/08 SC 1011 Fluoxetine HCl 20 MG DAILY 03/08 1000 AC 03/08 PO 1012 Gabapentin 0 .STK-MED ONE 03/08 0605 DC PO Gabapentin 0 .STK-MED ONE 03/07 2222 DC PO Gabapentin 600 MG Q8 03/07 2200 AC 03/08 PO 1423 Hydrochlorothiazide 25 MG DAILY 03/08 1000 AC 03/08 PO 1011 Hydrocortisone 25 MG BID 03/08 1400 AC 03/08 Sodium Succinate IV 1423 Insulin Aspart 0 TIDAC/HS 03/08 1700 AC 03/08 SC 1751 Insulin Aspart 0 TIDAC 03/08 0800 DC SC Losartan Potassium 100 MG DAILY 03/08 1000 AC PO Methadone HCl 20 MG TID 03/08 1600 AC 03/08 PO 1455 Methadone HCl 0 .STK-MED ONE 03/08 1456 DC PO Methadone HCl 20 MG Q8P PRN 03/08 1445 DC PO Metoprolol Succinate 100 MG DAILY 03/08 1000 AC 03/08 PO 1012 Nitroglycerin 0 .STK-MED ONE 03/08 1138 DC TOP Nitroglycerin 0 .STK-MED ONE 03/08 0609 DC TOP Nitroglycerin 0 .STK-MED ONE 03/08 0605 DC TOP Nitroglycerin 0.5 GM Q6 03/07 2359 AC 03/08 TOP 1141 Nitroglycerin 0 .STK-MED ONE 03/07 2336 DC TOP Omeprazole 0 .STK-MED ONE 03/08 0701 DC PO Omeprazole 40 MG DAILY AC 03/08 0700 AC 03/08 PO 0700 Oxycodone/ 1 TAB Q6P PRN 03/07 2045 AC Acetaminophen PO Last 24 Hrs of Lab/Moise Results Last 24 Hrs of Labs/Mics: Laboratory Tests 03/08/17 0620: Anion Gap 9, Estimated GFR > 60, BUN/Creatinine Ratio 24.3, Cortisol AM Sample 3.6 L, CBC w Diff NO MAN DIFF REQ, RBC 5.51, MCV 82.4, MCH 27.5, RDW 15.1 H, MPV 7.2 L, Gran % 69.0, Lymphocytes % 21.4, Monocytes % 7.8, Eosinophils % 1.4, Basophils % 0.4, Absolute Granulocytes 4.9, Absolute Lymphocytes 1.5, Absolute Monocytes 0.6, Absolute Eosinophils 0.1, Absolute Basophils 0, PUBS MCHC 33.3 03/07/17 2302: Troponin I < 0.01 03/07/172024: Urine Color YEL, Urine Clarity CLEAR, Urine pH 5.5, Ur Specific [place] >= 1.030 , Urine Protein 30 H, Urine Ketones NEG, Urine Nitrite NEG, Urine Bilirubin NEG , Urine Urobilinogen 0.2, Ur Leukocyte Esterase NEG, Ur Microscopic SEDIMENT EXAMINED, Urine RBC RARE, Urine Bacteria RARE H, Hyaline Casts 5-10 H, Urine Mucus FEW, Urine Hemoglobin TRACE-INTACT H, Urine Glucose NEG Microbiology 03/07 2025 URINE ROUT: Urine Culture - RECD Assessment/Plan Assessment: Patient is a 52 year old gentleman with PMH of HTN, HLD, CAD s/p stents placed in 2007, DM, psoriasis, GERD, who came to the ED due to 3 days of having heartburn and abdominal pain. He also reported a transient numbness and tingling in the left arm. He is currently being managed in telemetry floor for the following issues: #Atypical chest pain Mostly heartburn and a transient left arm tingling sensation, no chest tightness , diaphoresis or dizziness; and as he has an extensive medical history including cardiac, ACS was ruled out with three sets of troponin and EKG being negative. His pain did appear to be less with NTG, which can mean cardiac source or HI source like an esophageal spasm. * Continue to monitor on telemetry * Awaiting ECHO * Cardiology consult with Dr. Heredia appreciated * Patient is getting a Persantine stress test in AM Diabetes * Hba1c was high, so endocrinology consult was placed. Will follow recommendations accordingly. * accuchecks TID AC * NSS HTN, HLD * Continue metoprolol XR 100 mg daily * Losartan 100mg was held today for BP reading on lower side, can add small dose if his BP runs high * Continue atorvastatin 40 mg daily GERD * omeprazole 40 mg daily Psoriasis Patient uses topical steroids and receives Secukinumab injections Q30 days. Diet * cc3, but NPO from [place] as he is to get Persantine stress test in the morning Pain: tylenol, vicodin, percocet DVT ppx: SC lovenox Full code status Problem List: 1. Chest pain, unspecified 2. GERD (gastroesophageal reflux disease) 3. HISTORY OF CAD WITH STENT 4. Diabetes mellitus type 2 5. HTN (hypertension) 6. Psoriasis Pain Ratin Pain Location: epigastrium Pain Goal: Pain 4 or less Pain Plan: prn Tomorrow's Labs & Rationales: Persantine Echocardiogram
--- NOTE | 2017-03-08 13:46 | PN- Cardiology ---
Subjective Subjective: Clinically improved today. He still has some discomfort in his left upper chest /shoulder. Workup so far has been negative. Objective Vital Signs and I&Os Vital Signs Date Time Temp Pulse Resp B/P Pulse O2 O2 Flow FiO2 Ox Delivery Rate 03/08 1012 98.1 65 16 115/70 03/08 1012 98.1 65 16 115/70 03/08 0629 98.1 65 16 115/70 96 03/08 0256 60 18 157/84 95 Room Air 03/07 2337 60 157/84 03/07 2224 62 16 138/80 95 Room Air 03/07 1952 170/100 03/07 1903 98.9 72 20 172/100 95 Room Air 03/07 1704 68 164/98 03/07 1704 68 164/98 03/07 1650 164/98 03/07 1624 99.8 74 22 181/102 96 Room Air 03/07 1509 98.0 81 20 164/102 03/07 1420 74 18 184/93 96 Room Air 03/07 1356 99.0 74 18 173/105 100 Intake & Output 03/08 1600 03/08 0800 03/08 0000 03/07 1600 03/07 0800 03/07 0000 Intake Total Output Total Balance Patient 280 lb 280 lb Weight Current Medications: Current Medications Sig/Mani Start time Last Medication Dose Route Stop Time Status Admin Acetaminophen 500 MG Q6P PRN 03/07 2045 AC PO Acetaminophen/ 1 TAB Q6P PRN 03/07 2045 AC Hydrocodone Bitart PO Atorvastatin Calcium 40 MG 1700 03/08 1700 AC PO Clopidogrel Bisulfate 75 MG DAILY 03/08 1000 AC 03/08 PO 1011 Diazepam 10 MG Q12P PRN 03/07 2100 AC PO Enoxaparin Sodium 0 .STK-MED ONE 03/08 0941 DC SC Enoxaparin Sodium 0 .STK-MED ONE 03/07 2222 DC SC Enoxaparin Sodium 40 MG DAILY 03/07 203 AC 03/08 SC 1011 Fluoxetine HCl 20 MG DAILY 03/08 1000 AC 03/08 PO 1012 Gabapentin 0 .STK-MED ONE 03/08 0605 DC PO Gabapentin 0 .STK-MED ONE 03/07 2222 DC PO Gabapentin 600 MG Q8 03/07 2200 AC 03/08 PO 0631 Hydrochlorothiazide 25 MG DAILY 03/08 1000 AC 03/08 PO 1011 Hydrochlorothiazide 25 MG ONCE ONE 03/07 1700 DC 03/07 PO 03/07 1701 1704 Insulin Aspart 0 TIDAC 03/08 0800 AC SC Ketorolac 0 .STK-MED ONE 03/07 1520 DC Tromethamine .ROUTE Ketorolac 30 MG ONCE ONE 03/07 1515 DC 03/07 Tromethamine IV 03/07 1516 1524 Losartan Potassium 100 MG DAILY 03/08 1000 AC PO Losartan Potassium 100 MG ONCE ONE 03/07 1700 DC 03/07 PO 03/07 1701 1704 Losartan Potassium 0 .STK-MED ONE 03/07 1659 DC PO Metoprolol Succinate 100 MG DAILY 03/08 1000 AC 03/08 PO 1012 Metoprolol Tartrate 100 MG ONCE ONE 03/07 1700 DC 03/07 PO 03/07 1701 1704 Metoprolol Tartrate 0 .STK-MED ONE 03/07 1659 DC PO Nitroglycerin 0 .STK-MED ONE 03/08 1138 DC TOP Nitroglycerin 0 .STK-MED ONE 03/08 0609 DC TOP Nitroglycerin 0 .STK-MED ONE 03/08 0605 DC TOP Nitroglycerin 0.5 GM Q6 03/07 2359 AC 03/08 TOP 1141 Nitroglycerin 0 .STK-MED ONE 03/07 2336 DC TOP Nitroglycerin 0.4 MG ONCE ONE 03/07 1430 DC 03/07 SL 03/07 1431 1422 Nitroglycerin 0 .STK-MED ONE 03/07 1421 DC SL Omeprazole 0 .STK-MED ONE 03/08 0701 DC PO Omeprazole 40 MG DAILY AC 03/08 0700 AC 03/08 PO 0700 Oxycodone/ 1 TAB Q6P PRN 03/07 2045 AC Acetaminophen PO Pantoprazole Sodium 0 .STK-MED ONE 03/07 1521 DC IV Pantoprazole Sodium 40 MG ONCE ONE 03/07 1515 DC 03/07 IV 03/07 1516 1524 Results Last 48 Hrs of Labs/Mics: Laboratory Tests 03/08/17 0620: Anion Gap 9, Estimated GFR > 60, BUN/Creatinine Ratio 24.3, CBC w Diff NO MAN DIFF REQ, RBC 5.51, MCV 82.4, MCH 27.5, RDW 15.1 H, MPV 7.2 L, Gran % 69.0, Lymphocytes % 21.4, Monocytes % 7.8, Eosinophils % 1.4, Basophils % 0.4, Absolute Granulocytes 4.9, Absolute Lymphocytes 1.5, Absolute Monocytes 0.6, Absolute Eosinophils 0.1, Absolute Basophils 0, PUBS MCHC 33.3 03/07/17 2302: Troponin I < 0.01 03/07/172024: Urine Color YEL, Urine Clarity CLEAR, Urine pH 5.5, Ur Specific [place] >= 1.030 , Urine Protein 30 H, Urine Ketones NEG, Urine Nitrite NEG, Urine Bilirubin NEG , Urine Urobilinogen 0.2, Ur Leukocyte Esterase NEG, Ur Microscopic SEDIMENT EXAMINED, Urine RBC RARE, Urine Bacteria RARE H, Hyaline Casts 5-10 H, Urine Mucus FEW, Urine Hemoglobin TRACE-INTACT H, Urine Glucose NEG 03/07/17 1715: Troponin I < 0.01 03/07/17 1308: Anion Gap 11, Estimated GFR > 60, BUN/Creatinine Ratio 16.7, Glucose 129 H, Calcium 9.1, Total Bilirubin 0.6, AST 34, ALT 58, Alkaline Phosphatase 107, Troponin I < 0.01, Total Protein 7.5, Albumin 4.0, Globulin 3.5, Albumin/ Globulin Ratio 1.1, Amylase 50, Lipase 48, CBC w Diff NO MAN DIFF REQ, RBC 5.58, MCV 82.0, MCH 27.1, RDW 14.8 H, MPV 7.1 L, Gran % 60.4, Lymphocytes % 28.5, Monocytes % 9.1, Eosinophils % 1.3, Basophils % 0.7, Absolute Granulocytes 3.0, Absolute Lymphocytes 1.4, Absolute Monocytes 0.4, Absolute Eosinophils 0.1, Absolute Basophils 0, PUBS MCHC 33.0 Assessment/Plan Assessment/Plan Assessment: 1. Chest pain syndrome - At the present time the patient's symptoms are of unclear etiology. The patient feels that they are likely GI in nature with frequent belching and a sense of nausea. He had temporary relief with GI cocktail, etc but the symptoms recurred. He also had transient improvement with TNG SL. I suspect that the symptoms are unlikely to be cardiac in nature in view of their protracted nature with no ECG changes or troponin elevation. However, he does have a history of distal LAD disease and apical abnormalities may be electrocardiographically "silent". 2. History of CAD; History of LAD stent 2007 3. HTN 4. HLD 5. ANGELA 6. GERD Recommendations: -So far, the patient's evaluation has been negative. His serial ECGs and troponins have been negative. His echo cardiac gram showsno acute change. -I had an extended discussion with the patient and his ex-. Multiple options were discussed. For now, we have agreed to keep the patient nothing by mouth after midnight tonight and have a dipyridamole nuclear stress test tomorrow. -Further plans will depend on the results of the nuclear stress test. -Since the patient's symptoms began after the recent change in his diabetic medications, it might be worthwhile to have input from Dr. lara of the endocrinology service with respect to his current medication regimen. Continue telemetry? Yes
--- NOTE | 2017-03-08 16:08 | PN- Att Addend ---
Attending MD Review Statement Attending Statement Attending MD Statement: examined this patient, discuss w/resident/PA/STAINED GLASS PAINTER, agreed w/resident/PA/STAINED GLASS PAINTER, reviewed EMR data (avail), discussed w/nursing Attending Assessment/Plan: Laboratory Tests 03/08/17 0620: Anion Gap 9, Estimated GFR > 60, BUN/Creatinine Ratio 24.3, Cortisol AM Sample 3.6 L, CBC w Diff NO MAN DIFF REQ, RBC 5.51, MCV 82.4, MCH 27.5, RDW 15.1 H, MPV 7.2 L, Gran % 69.0, Lymphocytes % 21.4, Monocytes % 7.8, Eosinophils % 1.4, Basophils % 0.4, Absolute Granulocytes 4.9, Absolute Lymphocytes 1.5, Absolute Monocytes 0.6, Absolute Eosinophils 0.1, Absolute Basophils 0, PUBS MCHC 33.3 03/07/17 2302: Troponin I < 0.01 03/07/172024: Urine Color YEL, Urine Clarity CLEAR, Urine pH 5.5, Ur Specific [place] >= 1.030 , Urine Protein 30 H, Urine Ketones NEG, Urine Nitrite NEG, Urine Bilirubin NEG , Urine Urobilinogen 0.2, Ur Leukocyte Esterase NEG, Ur Microscopic SEDIMENT EXAMINED, Urine RBC RARE, Urine Bacteria RARE H, Hyaline Casts 5-10 H, Urine Mucus FEW, Urine Hemoglobin TRACE-INTACT H, Urine Glucose NEG 03/07/17 1715: Troponin I < 0.01 Vital Signs Date Time Temp Pulse Resp B/P Pulse O2 O2 Flow FiO2 Ox Delivery Rate 03/08 1407 98.2 57 19 131/77 94 Room Air 03/08 1012 98.1 65 16 115/70 03/08 1012 98.1 65 16 115/70 03/08 0629 98.1 65 16 115/70 96 03/08 0256 60 18 157/84 95 Room Air 03/07 2337 60 157/84 03/07 2224 62 16 138/80 95 Room Air 03/07 1952 170/100 03/07 1903 98.9 72 20 172/100 95 Room Air 03/07 1704 68 164/98 03/07 1704 68 164/98 03/07 1650 164/98 03/07 1624 99.8 74 22 181/102 96 Room Air Patient seen and examined at bedside. Discussed with patient the care plan. 52-year-old male with past medical history of psoriasis and coronary artery disease status post stenting in LAD in 2007 who presented with the chief complaint of epigastric pain.. Patient says this pain is different from his pain when he had the stenting done. Patient had serial troponins done which were negative 3. Patient was seen by cardiology and patient will undergo stress test tomorrow morning. We will wait for echocardiogram results. We have also consulted GI to rule out other causes for epigastric pain. CT abdomen and pelvis was done which showed hepatosplenomegaly with some hepatic steatosis but no acute etiology for epigastric pain was found. Will follow-up in the GI recommendations and the stress test results. If stress test is negative we will discharge the patient home tomorrow. Patient has been using topical steroids as well as getting steroid injections for his back pain. His a.m. cortisol level was low at 3.6. Patient was seen by endocrine and was started on IV Solu-cortef. We will discuss with endocrine about the discharge dose of steroids tomorrow.
[2017-03-08 17:07] VITALS: BP 156/94
--- NOTE | 2017-03-08 18:13 | Cons- Endocrinology ---
General Information and HPI Consulting Request Date of Consult: 03/08/17 Requested By: medical team Reason for Consult: management of diabetes and secondary adrenal insufficiency. Source of Information: patient, old records Exam Limitations: no limitations History of Present Illness: Patient has had a very complicated past medical history including chronic back pain due to herniated discs and degenerative changes s/p multiple surgical procedures and has been on ? steroid injections on an average every 4 months for years, psoriasis on Cosentyx injection once a month and steroid cream, diabetes type 2 with HbA1c of 7.0% on Glipizide 2.5 mg daily ( Hx of metformin intolerance), chronic pain management currently on Methadone 80 mg daily, sleep apnea and hypertension, was feeling exhausted lately. I saw him in the office last week for the first time for endocrine evaluation. He was diagnosed with hypogonadism several years ago and was on testosterone injection once every two weeks. In 2012 when patient was in [facility], am cortisol was done and it was 1.8. His TSH was 1.04 at that time. Over past several years, he has had more midsection weight, more fat deposit around his neck. His face has been red and round. There have been more stretch zavala over his abdomen, consistent with Cushingoid appearance. He has been on ? cortisone cream for psoriasis and ? steroid injection for degenerative OA in his back for years. His Cushingoid appearance most likely is due to the chronic halfway exogenous steroid uses which also suppresses his own adrenal function. Additionally, the chronic pain medication including Methadone suppresses his pituitary function and his testosterone level was low. The endocrine work-up was done on 03/02/2017. Am cortisol 3.3, ACTH 11, am testosterone 19, FSH 1.0 and LH < 0.2, free T4 1.22, TSH 2.08, prolactin 9.4, 25 OH vitamin D 7.0, calcium 9.4, albumin 4.0; HbA1c 7.0%. Patient presented to ER on 03/07/2017 for chest discomfort and nausea. He is going to have stress test done tomorrow. Allergies/Medications Allergies: Coded Allergies: venom-honey bee (bee venom (honey bee)) (SWELLING AT SITE 06/09/16) Uncoded Allergies: ENVIRONMENTAL (ITCHY, WATERY EYES, STUFFY NOSE, DYSPNEA 01/09/16) Home Med List: Atorvastatin Calcium 40 MG TABLET 40 MG PO 1700 CHOLESTEROL Clopidogrel Bisulfate (Clopidogrel) 75 MG TABLET 1 TAB PO DAILY BLOOD THINNER (Reported) Diazepam 10 MG TABLET 1 TAB PO PRN BACK SPASMS (Reported) Fluoxetine HCl (Unknown Strength) CAPSULE 20 MG PO DAILY MENTAL HEALTH ( Reported) Gabapentin 600 MG TABLET 1 TAB PO TID NERVE PAIN (Reported) Glipizide (Glipizide ER) 2.5 MG TAB.ER.24 1 TAB PO DAILY DM (Reported) Losartan/Hydrochlorothiazide (Hyzaar 100-25 Tablet) 100 MG-25 MG TABLET 1 TAB PO DAILY BP (Reported) Methadone HCl (Dolophine HCl) 10 MG TABLET 30 MG PO BID SPINAL STENOSIS/ HERNIATED DISC (Reported) Metoprolol Succinate 100 MG TAB.ER.24H 1 TAB PO DAILY HEART/BP (Reported) Pantoprazole Sodium (Protonix) 40 MG TABLET.DR 1 TAB PO DAILY GERD Secukinumab (Cosentyx (2 Syringes)) 150 MG/1 ML SYRINGE 2 INJ Q30D PSORIASIS (Reported) Review of Systems Review of Systems Constitutional: Reports: see HPI. Cardiovascular: Reports: chest pain. Respiratory: Denies: short of breath. GI: Reports: nausea. Hematologic/Endocrine: Reports: see HPI. Denies: polyuria, polydipsia. Past History Travel History Traveled to [place] past 21 day No Medical History Neurological: NONE EENT: NONE Cardiovascular: CAD, hypertension, hyperlipidemia, STENTS 2007 Respiratory: obstructive sleep apnea Gastrointestinal: diverticulitis, GERD Hepatic: NONE Renal: NONE Musculoskeletal: chronic back pain, disk herniation, SPINAL STENOSIS ARTHRITIS Psychiatric: anxiety, depression Endocrine: PRE-DIABETIC Blood Disorders: NONE Cancer(s): NONE LEATHER SPONGER/Reproductive: NONE Other Medical Hx: PSORIASIS Surgical History Surgical History: hernia repair-umbilical, heart stents in 2007 Family History Relations & Conditions If Any: FATHER FH: HTN (hypertension) FH: myocardial infarction MOTHER FH: HTN (hypertension) FH: myocardial infarction Psychosocial History Services at Home: None Smoking Status: Former Smoker (quit 1 year ago) ETOH Use: occasional use Illicit Drug Use: denies illicit drug use Functional Ability Ambulation: independent Exam & Diagnostic Data Last 24 Hrs of Vital Signs/I&O Vital Signs Date Time Temp Pulse Resp B/P Pulse O2 O2 Flow FiO2 Ox Delivery Rate 03/08 1707 97.4 56 20 156/94 94 Room Air 03/08 1407 98.2 57 19 131/77 94 Room Air 03/08 1012 98.1 65 16 115/70 03/08 1012 98.1 65 16 115/70 03/08 0629 98.1 65 16 115/70 96 03/08 0256 60 18 157/84 95 Room Air 03/07 2337 60 157/84 03/07 2224 62 16 138/80 95 Room Air 03/07 1952 170/100 03/07 1903 98.9 72 20 172/100 95 Room Air Intake & Output 03/08 1600 03/08 0800 03/08 0000 Intake Total Output Total Balance Patient 280 lb Weight Physical Exam General Appearance: no apparent distress, obese, Cushingoid appearance Head: hickman face Neck: supraclavicular fat deposits Cardiovascular: regular rate/rhythm Gastrointestinal: soft, distention Extremities: swelling Labs/Moise Results: Laboratory Tests 03/08 03/07 0620 2302 Chemistry Sodium (137 - 145 mmol/L) 137 Potassium (3.5 - 5.1 mmol/L) 4.0 Chloride (98 - 107 mmol/L) 97 L Carbon Dioxide (22 - 30 mmol/L) 31 H Anion Gap (5 - 16) 9 BUN (9 - 20 mg/dL) 17 Creatinine (0.7 - 1.2 mg/dL) 0.7 Estimated GFR (>60 ml/min) > 60 BUN/Creatinine Ratio (7 - 25 %) 24.3 Troponin I (<0.11 ng/ml) < 0.01 Cortisol AM Sample (4.46 - 22.7 ug/dL) 3.6 L Hematology CBC w Diff NO MAN DIFF REQ WBC (4.8 - 10.8 /CUMM) 7.1 RBC (4.70 - 6.10 /CUMM) 5.51 Hgb (14.0 - 18.0 G/DL) 15.1 Hct (42 - 52 %) 45.4 MCV (80.0 - 94.0 FL) 82.4 MCH (27.0 - 31.0 PG) 27.5 RDW (11.5 - 14.5 %) 15.1 H Plt Count (130 - 400 /CUMM) 190 MPV (7.4 - 10.4 FL) 7.2 L Gran % (42.2 - 75.2 %) 69.0 Lymphocytes % (20.5 - 51.1 %) 21.4 Monocytes % (1.7 - 9.3 %) 7.8 Eosinophils % (0 - 5 %) 1.4 Basophils % (0.0 - 2.0 %) 0.4 Absolute Granulocytes (1.4 - 6.5 /CUMM) 4.9 Absolute Lymphocytes (1.2 - 3.4 /CUMM) 1.5 Absolute Monocytes (0.10 - 0.60 /CUMM) 0.6 Absolute Eosinophils (0.0 - 0.7 /CUMM) 0.1 Absolute Basophils (0.0 - 0.2 /CUMM) 0 PUBS MCHC (33.0 - 37.0 G/DL) 33.3 03/07 2025 Urines Urine Color (YEL,AMB,STR) YEL Urine Clarity (CLEAR) CLEAR Urine pH (5.0 - 8.0) 5.5 Ur Specific [place] (1.001 - 1.035) >= 1.030 Urine Protein (NEG,<30 MG/DL) 30 H Urine Ketones (NEG) NEG Urine Nitrite (NEG) NEG Urine Bilirubin (NEG) NEG Urine Urobilinogen (0.1 - 1.0 EU/dl) 0.2 Ur Leukocyte Esterase (NEG) NEG Ur Microscopic SEDIMENT EXAMINED Urine RBC (0 - 5 /HPF) RARE Urine Bacteria (NEG/NONE) RARE H Hyaline Casts (0/LPF) 5-10 H Urine Mucus (FEW,NONE) FEW Urine Hemoglobin (NEG) TRACE-INTACT H Urine Glucose (N MG/DL) NEG Assessment/Plan Assessment/Plan Patient has had a very complicated past medical history including chronic back pain due to herniated discs and degenerative changes s/p multiple surgical procedures and has been on ? steroid injections on an average every 4 months for years, psoriasis on Cosentyx injection once a month and steroid cream, diabetes type 2 with HbA1c of 7.0% on Glipizide 2.5 mg daily ( Hx of metformin intolerance), chronic pain management currently on Methadone 80 mg daily, hypogonadism, sleep apnea and hypertension, was feeling exhausted lately, was admitted for chest discomfort and nausea. He is going to have stress test done. On exam, patient has midsection weight, fat deposit around his neck and hickman face and stretch zavala over his abdomen, consistent with Cushingoid appearance. He has been on ? cortisone cream for psoriasis and ? steroid injection for degenerative OA in his back for years. His Cushingoid appearance most likely is due to the chronic halfway exogenous steroid uses which also suppresses his own adrenal function. Additionally, the chronic pain medication including Methadone suppresses his pituitary function and his testosterone level was low. According to the outpatient endocrine work up, patient has secondary adrenal insufficiency and hypogonadotrophic hypogonadism. As he was having chest discomfort and nausea, he is going to have stress test done, I have recomemnded stress dose of steroid at this point-- Hydrocortisone 25 mg iv twice a day. With regards to the physiological adrenal hormone replacement, as patient is symptomatic and it is indicated. The recovery of endogeneous cortisol production is expected after stopping the exogeneous steroids, though the time to recovery can vary. Particularly for this patient, he was on steroids treatemnt for years, it could take much longer time. As outpatient, he will continue the testosterone replacement. I will order MRI of pituitary to r/o any lesions. In addition, patient should have a baseline DEXA done. With regards to DM, he will be on Novolog coverage at this point. Detail see the insulin order. will follow. Inpatient Diabetes Orders Before Each Meal: Bolus Insulin: Novolog < 80 mg/dl: no coverage 80-100 mg/dl: no coverage 101-120 mg/dl: no coverage 121-150 mg/dl: no coverage 151-200 mg/dl: 2 units 201-250 mg/dl: 4 units 251-300 mg/dl: 6 units 301-350 mg/dl: 8 units 351-400 mg/dl: 10 units > 400 mg/dl: 12 units Bedtime: Bolus Insulin: Novolog < 80 mg/dl: no coverage 80-100 mg/dl: no coverage 101-120 mg/dl: no coverage 121-150 mg/dl: no coverage 151-200 mg/dl: no coverage 201-250 mg/dl: 2 units 251-300 mg/dl: 3 units 301-350 mg/dl: 4 units 351-400 mg/dl: 5 units > 400 mg/dl: 6 units Consult Acknowledgment - Thank you for your consult request.
[2017-03-08 19:32] VITALS: BP 112/60
--- NOTE | 2017-03-08 20:08 | ECHOCARDIOGRAM REPORT ---
GISSELNERY MORGAN Age: 52 : 1965 Gender: M Exam Date: 03/08/2017 07:49 Exam Location: ER Ht (in): 69 Wt (lb): 280 BSA: 2.55 BP: 115 / 70 Ordering Physician: BLAINE MALDONADO MD Referring Physician: BLAINE MALDONADO MD Technologist: Tobi Cowan Room Number: ER-2 Indications: CHEST PAIN Rhythm: Sinus Technical Quality: Fair, Technically difficult study FINDINGS Left Ventricle Normal global left ventricular size, wall thickness, systolic function with no obvious regional wall motion abnormalities. Normal left ventricular ejection fraction estimated at 55-60%. Right Ventricle Right ventricle not well visualized, grossly normal. Right Atrium Normal right atrial size. Left Atrium Mild left atrial dilatation. Mitral Valve Mitral valve thickened. Trace mitral regurgitation. Aortic Valve Trileaflet aortic valve. Focal thickening of the aortic valve cusps. No aortic stenosis. No aortic regurgitation. Tricuspid Valve Tricuspid valve not well visualized, grossly normal. Trace to mild tricuspid regurgitation. Pulmonic Valve Pulmonic valve not well visualized, grossly normal. Trace pulmonic regurgitation. Pericardium Normal pericardium. No pericardial effusion. Great Vessels Normal size aortic root and proximal ascending aorta. CONCLUSIONS 1. This was a technically difficult examination due to the patient's body habitus. 2. Minimal to mild aortic sclerosis is present with no valvular stenosis or insufficiency. 3. Mild thickening of the mitral leaflets is present with minimal mitral insufficiency and mild left atrial enlargement. 4. There is no significant pericardial fluid present. 5. The left ventricular chamber size and systolic function are normal. 6. Minimal to mild tricuspid and pulmonic insufficiency are present with no evidence of pulmonary hypertension. Eva Heredia M.D. (Electronically Signed) Final Date: 08 March 2017 20:07 MEASUREMENTS (Male / Female) Normal Values 2D ECHO LV Diastolic Diameter PLAX 4.3 cm 4.2 - 5.9 / 3.9 - 5.3 cm LV Systolic Diameter PLAX 3.2 cm 2.1 - 4.0 cm LV Fractional Shortening PLAX 25.6 % 25 - 46 % LV Ejection Fraction 2D Teich 50.7 % IVS Diastolic Thickness 1.3 cm LVPW Diastolic Thickness 1.1 cm LV Relative Wall Thickness 0.6 RV Internal Dim ED PLAX 3.5 cm 1.9 - 3.8 cm LVOT Diameter 2.4 cm Aortic Root Diameter 3.1 cm LA Systolic Diameter LX 4.2 cm 3.0 - 4.0 / 2.7 - 3.8 cm LA Volume 63.0 cm 18 - 58 / 22 - 52 cm Ascending Aorta Diameter 3.5 cm DOPPLER AV Peak Velocity 121.0 cm/s AV Peak Gradient 5.9 mmHg AV Mean Velocity 87.1 cm/s AV Mean Gradient 3.0 mmHg AV Velocity Time Integral 25.1 cm LVOT Peak Velocity 106.0 cm/s LVOT Peak Gradient 4.5 mmHg LVOT Mean Velocity 67.7 cm/s LVOT Mean Gradient 2.0 mmHg LVOT Velocity Time Integral 18.8 cm LVOT Stroke Volume 85.0 cm AV Area Cont Eq vti 3.4 cm AV Area Cont Eq pk 4.0 cm MV Peak Velocity 92.4 cm/s MV Peak Gradient 3.4 mmHg MV Mean Velocity 54.8 cm/s MV Mean Gradient 1.0 mmHg Mitral E Point Velocity 80.5 cm/s Mitral A Point Velocity 82.4 cm/s Mitral E to A Ratio 1.0 MV PHT Velocity 94.3 cm/s MV Deceleration Adams 513.0 cm/s MV Pressure Half Time 55.1 ms MV Area PHT 4.0 cm MV Deceleration Time 222.0 ms TR Peak Velocity 190.0 cm/s TR Peak Gradient 14.4 mmHg Right Atrial Pressure 5.0 mmHg Pulmonary Artery Systolic Pressu 19.4 mmHg Right Ventricular Systolic Press 19.4 mmHg PV Peak Velocity 88.9 cm/s PV Peak Gradient 3.2 mmHg PV Mean Velocity 59.7 cm/s PV Mean Gradient 2.0 mmHg PV Velocity Time Integral 17.9 cm LV E' Lateral Velocity 5.9 cm/s Mitral E to LV E' Lateral Ratio 13.8 LV E' Septal Velocity 5.1 cm/s Mitral E to LV E' Septal Ratio 15.9
[2017-03-09 00:28] VITALS: BP 118/92
[2017-03-09 05:22] VITALS: BP 144/102
[2017-03-09 08:00] VITALS: BP 120/86
--- NOTE | 2017-03-09 08:16 | PN- Housestaff ---
See Addendum MARSHALL HUGHES,[place] 03/09/17 0816: Subjective Follow-up For: epigastric pain Complaints: no complaints Tele-Events Since Last Visit: Sinus runny, sinus rhythm, first-degree AV block, heart rate 57-62. Subjective: I followed up and examined the patient today. He is resting comfortably in his bed, is not in distress, does not have any complaint, and does not have any overnight issues. His vitals have been stable overnight. Review of Systems Constitutional: Reports: see HPI. Objective Last 24 Hrs of Vital Signs/I&O Vital Signs Date Time Temp Pulse Resp B/P Pulse O2 O2 Flow FiO2 Ox Delivery Rate 03/09 1457 97.5 58 18 118/68 95 Room Air 03/09 0937 62 120/86 03/09 0936 120/86 03/09 0800 97.5 56 20 120/86 97 Room Air 03/09 0800 97.5 56 20 120/86 97 Room Air 03/09 0522 59 144/102 94 Room Air 03/09 0028 97.6 58 20 118/92 93 Room Air 03/08 1932 60 112/60 Intake & Output 03/09 1600 03/09 0800 03/09 0000 Intake Total 30 50 610 Output Total Balance 30 50 610 Intake, IV 10 Intake, Oral 30 50 600 Physical Exam General Appearance: Alert, Oriented X3, Cooperative, No Acute Distress, morbidly obese Other Physical Findings: Skin No Rashes, No Breakdown, No Significant Lesion HEENT Hernandez-facies, atraumatic, EOMI, Mucous Membr. moist/pink Neck Supple, No JVD, buffalo hump Cardiovascular Regular Rate, Normal S1, Normal S2 Lungs Clear to Auscultation anteriorly, Normal Air Movement Abdomen Soft, No Tenderness Neurological grossly intact Extremities No Edema, Normal Pulses, No Tenderness/Swelling Vascular Pulses Symmetrical Current Medications: Current Medications Sig/Amni Start time Last Medication Dose Route Stop Time Status Admin Acetaminophen 500 MG Q6P PRN 03/07 2045 AC 03/09 PO 0713 Acetaminophen/ 1 TAB Q6P PRN 03/07 2045 AC Hydrocodone Bitart PO Atorvastatin Calcium 40 MG 1700 03/08 1700 AC 03/09 PO 1701 Clopidogrel Bisulfate 75 MG DAILY 03/08 1000 AC 03/09 PO 0936 Diazepam 10 MG Q12P PRN 04/10 2100 AC PO Dipyridamole 60 MG ONE ONE 03/09 1000 DC Dextrose/Water 28 ML IV 03/09 1029 Enoxaparin Sodium 40 MG DAILY 03/07 2033 AC 03/09 SC 0936 Ergocalciferol 50,000 IU ONCE A WEEK 03/09 1245 AC 03/09 PO 1659 Fluoxetine HCl 20 MG DAILY 03/08 1000 AC 03/09 PO 0936 Gabapentin 600 MG Q8 03/07 2200 AC 03/09 PO 1659 Hydrochlorothiazide 25 MG DAILY 03/08 1000 AC 03/09 PO 0936 Hydrocortisone 15 MG 0800 04 0800 AC PO Hydrocortisone 5 MG 1600 03/09 1600 AC 03/09 PO 1659 Hydrocortisone 25 MG BID 03/08 1400 DC 03/09 Sodium Succinate IV 0936 Insulin Aspart 0 TIDAC/HS 03/08 1700 AC 03/08 SC 1751 Losartan Potassium 100 MG DAILY 03/08 1000 AC 03/09 PO 0936 Methadone HCl 20 MG TID 03/08 1600 AC 03/09 PO 1700 Metoprolol Succinate 100 MG DAILY 03/08 1000 AC 03/09 PO 0937 Nitroglycerin 0.5 GM Q6 03/07 2359 AC 03/09 TOP 1702 Omeprazole 40 MG DAILY AC 03/08 0700 AC 03/09 PO 0530 Oxycodone/ 1 TAB Q6P PRN 03/07 2045 AC Acetaminophen PO Assessment/Plan Assessment: Patient is a 52 year old gentleman with PMH of HTN, HLD, CAD s/p stents placed in 2007, DM, psoriasis, GERD, who came to the ED due to 3 days of having heartburn and abdominal pain. He also reported a transient numbness and tingling in the left arm. He is currently being managed in telemetry floor for the following issues: #Atypical chest pain Mostly heartburn and a transient left arm tingling sensation, no chest tightness , diaphoresis or dizziness; and as he has an extensive medical history including cardiac, ACS was ruled out with three sets of troponin and EKG being negative. His pain did appear to be less with NTG, which can mean cardiac source or HI source like an esophageal spasm. * Continue to monitor on telemetry * ECHO showed EF: 55-60%, was limited study, but was able to mention minimal mitral insufficiency and mild left atrial enlargement, minimal to mild tricuspid and pulmonic insufficiency with no evidence of pulmonary hypertension. * Cardiology consult with Dr. Heredia appreciated * Patient is getting a Persantine stress test in AM Of note: CTPMP checked today, and he has significant controlled substance/pain meds being prescribed. His pain scale here has been low without oversedation or side effects. Diabetes * Hba1c was high, and following Dr. lara for endocrinology consult. Appreciate her input. * Continue accuchecks TID AC * Continue NSS * Outpatient antidiabetic medication has been suggested by Dr. Lara as glipizide ER 2.5 daily. And no insulin. Adrenal insufficiency, secondary to exogenous steroid Patient is being replaced with hydrocortisone, will received his first dose yesterday via intravenous route, has been now placed on per oral route per Dr Lara's recommendations. HTN, HLD * Continue metoprolol XR 100 mg daily * Continue Losartan 100 mg daily today * Continue atorvastatin 40 mg daily GERD * Continue omeprazole 40 mg daily Psoriasis Patient uses topical steroids and receives Secukinumab injections Q30 days. Diet * cc3 Pain: tylenol, vicodin, percocet DVT ppx: SC lovenox Full code status Problem List: 1. Chest pain, unspecified 2. GERD (gastroesophageal reflux disease) 3. HISTORY OF CAD WITH STENT 4. Diabetes mellitus type 2 5. HTN (hypertension) 6. Psoriasis 7. Chronic back pain 8. Obstructive sleep apnea syndrome Pain Ratin Pain Location: low back Pain Goal: Pain 4 or less Pain Plan: prn, has methadone Tomorrow's Labs & Rationales: - IVON KIM MD 03/09/17 9661: Attending MD Review Statement Attending Statement Attending MD Statement: examined this patient, discuss w/resident/PA/FORENSIC ECONOMIST, agreed w/resident/PA/FORENSIC ECONOMIST, discussed with family, reviewed EMR data (avail), discussed with nursing, discussed with case mgmt, reviewed images, amended to note Attending Assessment/Plan: The patient was seen and discussed with house staff and case management. Pharmacologic stress this morning was delayed due to late delivery of Tc-99m Myoview. Reviewed stress image and note RVE, LVEF=50%, small inferoapical defect observed. Cannot perform rest study until tomorrow morning.
--- NOTE | 2017-03-09 08:59 | PN- Cardiology ---
Subjective Subjective: Stable without recurrent symptoms Objective Vital Signs and I&Os Vital Signs Date Time Temp Pulse Resp B/P Pulse O2 O2 Flow FiO2 Ox Delivery Rate 03/09 0800 97.5 56 20 120/86 97 Room Air 03/09 0800 97.5 56 20 120/86 97 Room Air 03/09 0522 59 144/102 94 Room Air 03/09 0028 97.6 58 20 118/92 93 Room Air 03/08 1932 60 112/60 03/08 1707 97.4 56 20 156/94 94 Room Air 03/08 1407 98.2 57 19 131/77 94 Room Air 03/08 1012 98.1 65 16 115/70 03/08 1012 98.1 65 16 115/70 Intake & Output 03/09 1600 03/09 0800 03/09 0000 03/08 1600 03/08 0800 03/08 0000 Intake Total 50 610 Output Total Balance 50 610 Intake, IV 10 Intake, Oral 50 600 Patient 280 lb Weight Current Medications: Current Medications Sig/Mani Start time Last Medication Dose Route Stop Time Status Admin Acetaminophen 500 MG Q6P PRN 03/07 2045 AC 03/09 PO 0713 Acetaminophen/ 1 TAB Q6P PRN 03/07 2045 AC Hydrocodone Bitart PO Atorvastatin Calcium 40 MG 1700 03/08 1700 AC 03/08 PO 1911 Clopidogrel Bisulfate 75 MG DAILY 03/08 1000 AC 03/08 PO 1011 Diazepam 10 MG Q12P PRN 03/07 2100 AC PO Dipyridamole 60 MG ONE ONE 03/09 1000 AC Dextrose/Water 28 ML IV 03/09 1029 Enoxaparin Sodium 0 .STK-MED ONE 03/08 0941 DC SC Enoxaparin Sodium 40 MG DAILY 03/07 203 AC 03/08 SC 1011 Fluoxetine HCl 20 MG DAILY 03/08 1000 AC 03/08 PO 1012 Gabapentin 600 MG Q8 03/07 2200 AC 03/09 PO 0531 Hydrochlorothiazide 25 MG DAILY 03/08 1000 AC 03/08 PO 1011 Hydrocortisone 25 MG BID 03/08 1400 AC 03/08 Sodium Succinate IV 2059 Insulin Aspart 0 TIDAC/HS 03/08 1700 AC 03/08 SC 1751 Insulin Aspart 0 TIDAC 03/08 0800 DC SC Losartan Potassium 100 MG DAILY 03/08 1000 AC PO Methadone HCl 20 MG TID 03/08 1600 AC 03/08 PO 2100 Methadone HCl 0 .STK-MED ONE 03/08 1456 DC PO Methadone HCl 20 MG Q8P PRN 03/08 1445 DC PO Metoprolol Succinate 100 MG DAILY 03/08 1000 AC 03/08 PO 1012 Nitroglycerin 0 .STK-MED ONE 03/08 1138 DC TOP Nitroglycerin 0.5 GM Q6 03/07 2359 AC 03/09 TOP 0530 Omeprazole 40 MG DAILY AC 03/08 0700 AC 03/09 PO 0530 Oxycodone/ 1 TAB Q6P PRN 03/07 204 AC Acetaminophen PO Results Last 48 Hrs of Labs/Mics: Laboratory Tests 03/08/17 0620: Anion Gap 9, Estimated GFR > 60, BUN/Creatinine Ratio 24.3, Cortisol AM Sample 3.6 L, CBC w Diff NO MAN DIFF REQ, RBC 5.51, MCV 82.4, MCH 27.5, RDW 15.1 H, MPV 7.2 L, Gran % 69.0, Lymphocytes % 21.4, Monocytes % 7.8, Eosinophils % 1.4, Basophils % 0.4, Absolute Granulocytes 4.9, Absolute Lymphocytes 1.5, Absolute Monocytes 0.6, Absolute Eosinophils 0.1, Absolute Basophils 0, PUBS MCHC 33.3 03/07/17 2302: Troponin I < 0.01 03/07/172024: Urine Color YEL, Urine Clarity CLEAR, Urine pH 5.5, Ur Specific [place] >= 1.030 , Urine Protein 30 H, Urine Ketones NEG, Urine Nitrite NEG, Urine Bilirubin NEG , Urine Urobilinogen 0.2, Ur Leukocyte Esterase NEG, Ur Microscopic SEDIMENT EXAMINED, Urine RBC RARE, Urine Bacteria RARE H, Hyaline Casts 5-10 H, Urine Mucus FEW, Urine Hemoglobin TRACE-INTACT H, Urine Glucose NEG 03/07/17 1715: Troponin I < 0.01 03/07/17 1308: Anion Gap 11, Estimated GFR > 60, BUN/Creatinine Ratio 16.7, Glucose 129 H, Calcium 9.1, Total Bilirubin 0.6, AST 34, ALT 58, Alkaline Phosphatase 107, Troponin I < 0.01, Total Protein 7.5, Albumin 4.0, Globulin 3.5, Albumin/ Globulin Ratio 1.1, Amylase 50, Lipase 48, CBC w Diff NO MAN DIFF REQ, RBC 5.58, MCV 82.0, MCH 27.1, RDW 14.8 H, MPV 7.1 L, Gran % 60.4, Lymphocytes % 28.5, Monocytes % 9.1, Eosinophils % 1.3, Basophils % 0.7, Absolute Granulocytes 3.0, Absolute Lymphocytes 1.4, Absolute Monocytes 0.4, Absolute Eosinophils 0.1, Absolute Basophils 0, PUBS MCHC 33.0 Assessment/Plan Assessment/Plan Assessment: 1. Chest pain syndrome - At the present time the patient's symptoms are of unclear etiology. The patient feels that they are likely GI in nature with frequent belching and a sense of nausea. He had temporary relief with GI cocktail, etc but the symptoms recurred. He also had transient improvement with TNG SL. I suspect that the symptoms are unlikely to be cardiac in nature in view of their protracted nature with no ECG changes or troponin elevation. However, he does have a history of distal LAD disease and apical abnormalities may be electrocardiographically "silent". 2. History of CAD; History of LAD stent 2007 3. HTN 4. HLD 5. ANGELA 6. GERD Recommendations: -COntinue current management -Further plans after stress test results. Continue telemetry? Yes
--- NOTE | 2017-03-09 10:07 | Patient Discharge Instructions ---
Discharge Instructions General Discharge Information You were seen/treated for: chest pain epigastric (upper abdominal) pain Special Instructions: -Please follow-up with your primary care provider within 7 days after discharge. -Please follow-up with your industrial laborer 7 after discharge. -Please follow up for arranging MRI of pituitary gland and DEXA scan with your industrial laborer or PCP. -We have made changes to your home medications, please read the instructions carefully. -Please follow-up with Eva Heredia MD, cardiology service within 7 days discharge. -Please follow-up with Dr. Ajay Pickard regarding gastroenterology services within 7 days of discharge. -Please come back to the hospital if your symptoms got worse. Diet Continue normal diet: No Recommended Diet: Diabetic Activity Full Activity/No Limits: Yes Activity Self Limited: Yes Acute Coronary Syndrome Inclusion Criteria At DC or during hospital stay patient has or had the following: ACS DIAGNOSIS No Discharge Core Measures Meds if any: Prescribed or Continued at Discharge Meds if any: NOT Prescribed or Continued at Discharge Congestive Heart Failure Inclusion Criteria At DC or during hospital stay patient has or had the following: CHF DIAGNOSIS No Discharge Core Measures Meds if any: Prescribed or Continued at Discharge Meds if any: NOT Prescribed or Continued at Discharge Cerebrovascular accident Inclusion Criteria At DC or during hospital stay patient has or had the following: CVA/TIA Diagnosis No Discharge Core Measures Meds if any: Prescribed or Continued at Discharge Meds if any: NOT Prescribed or Continued at Discharge Venous thromboembolism Inclusion Criteria VTE Diagnosis No VTE Type NONE VTE Confirmed by (Test) NONE Discharge Core Measures - Per Current guidelines, there needs to be overlap - treatment for the first 5 days of Warfarin therapy. - If discharged on Warfarin prior to 5 days of - overlap therapy, the patient will need to be - assessed for post discharge needs including - *Post discharge parental anticoagulation - *Warfarin and/or parental anticoagulation education - *Follow up date to check INR post discharge At least 5 days overlap therapy as Inpatient No Meds if any: Prescribed or Continued at Discharge Note: Overlap Therapy is Warfarin and Anticoagulant Meds if any: NOT Prescribed or Continued at Discharge
--- NOTE | 2017-03-09 12:39 | PN- Diabetes ---
Assessment/Plan Assessment: Patient has had a very complicated past medical history including chronic back pain due to herniated discs and degenerative changes s/p multiple surgical procedures and has been on ? steroid injections on an average every 4 months for years, psoriasis on Cosentyx injection once a month and steroid cream, diabetes type 2 with HbA1c of 7.0% on Glipizide 2.5 mg daily ( Hx of metformin intolerance), chronic pain management currently on Methadone 80 mg daily, hypogonadism, sleep apnea and hypertension, was feeling exhausted lately, was admitted for chest discomfort and nausea. His Cushingoid appearance most likely is due to the chronic residential exogenous steroid uses which also suppresses his own adrenal function. Additionally, the chronic pain medication including Methadone suppresses his pituitary function and his testosterone level was low. Patient has secondary adrenal insufficiency and he was placed on stress dose of streroid on 03/08/2017. With regards to DM, he is on Novolog coverage before meals and Novolog coverage at bedtime. His FSGs were 168, 133 and 108. Plan: 1. secondary adrenal insufficiency: ---change hydrocortisone 25 mg iv bid to hydrocortisone 15 mg am and 5 mg at 4 pm today; ---will arrange pituitary MRI as outpatient to r/o any pituitary and hypothalamus lesions; 2. hypogonadism: --- will restart testosterone replacement as out patient. 3. risk of osteoporosis has been discussed with patient. ---arrange DEXA as outpatient; ---start vitamin D2 50,000 units once a week x 6-8 weeks. 4. DM: continue the current Novolog coverage in the hospital. If he is medically stable for dischargem, he will be on Glipizide ER 2.5 mg daily. No insulin. 5. f/u in office after discharge. Subjective Subjective: He still feels not well this morning. Objective Last 24 Hrs of Vital Signs/I&O Vital Signs Date Time Temp Pulse Resp B/P Pulse O2 O2 Flow FiO2 Ox Delivery Rate 03/09 0937 62 120/86 03/09 0936 120/86 03/09 0800 97.5 56 20 120/86 97 Room Air 03/09 0800 97.5 56 20 120/86 97 Room Air 03/09 0522 59 144/102 94 Room Air 03/09 0028 97.6 58 20 118/92 93 Room Air 03/08 1932 60 112/60 03/08 1707 97.4 56 20 156/94 94 Room Air 03/08 1407 98.2 57 19 131/77 94 Room Air Intake & Output 03/09 1600 03/09 0800 03/09 0000 Intake Total 50 610 Output Total Balance 50 610 Intake, IV 10 Intake, Oral 50 600
[2017-03-09 14:57] VITALS: BP 118/68
--- NOTE | 2017-03-09 15:06 | IV DIPYRIDAMOLE NUCLEAR STRESS ---
Clinical Diagnosis: Chest pain, coronary artery disease Desk Monitor: Tanja Ortiz Date of Service: 03/09/17 IV DIPYRIDAMOLE INFUSED: 60 mg IV AMINOPHYLLINE INFUSED: 125 mg PATIENT WEIGHT: 280 lbs INTERPRETATION: The patient's baseline EKG showed normal sinus rhythm; lateral STT changes at 60 BPM. Baseline B/P 110/84. The patient received 60 mg of dipyridamole infused intravenously over a 4 minute period. TC-99M or Myoview was injected after dipyridamole infusion. The patient tolerated the infusion well. There were no EKG changes seen following pharmacologic infusion. Arrhythmias: none IMPRESSION: The test was supervised by the interpreting Vice Principal, who was in attendance during the entire test. No EKG evidence of stress induced myocardial ischemia. See separately dictated Nuclear Report.
[2017-03-09] MEDS ORDERED: VITAMIN D250000 UNIT PO (15:49)
--- NOTE | 2017-03-09 18:06 | Cons- Gastroenterology ---
General Information and HPI Consulting Request Date of Consult: 03/09/17 Requested By: IVON MANZANARES MD Reason for Consult: GI coverage was notified yesterday of a request for an elective GI consult today , to assess epigastric pain, chest pain, & GERD, HD #3. 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 He was subsequently recathed in 2008 & 2010, showing patent stent, but residual 50-70% distal LAD stenosis. 2016: Pharmacologic nuclear stress test done preoperatively- inferior abnormalities, felt to be diaphragmatic artifact. The patient tolerated surgery uneventfully then. He presented to the [facility] 11:59 AM on 03/07/2017, complaining of waxing and waning indigestion since 03/05/2017, for which he took Pepto-Bismol and Protonix , with incomplete relief. He also had left upper extremity numbness & epigastric/xiphoid pain, not typical of his cardiac symptoms, and more suggestive of his GERD, but the left upper extremity numbness caused some concern, prompting him to go to the ER. He was treated with Pepcid, GI cocktail , Nitroglycerin, Protonix, Toradol, Toprol, Losartan, and HCTZ, with partial relief. *His initial troponin was negative. *Admission EKG- NSR without change. The nitroglycerin reportedly helped more than the GI cocktail. There was no nausea, vomiting, odynophagia, dysphagia, hematemesis, early satiety, weight loss, change in appetite, fevers chills or jaundice. He denied any FFI. 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 He currently is on Oxycodone as needed, in addition to Methadone. The patient has mild chronic constipation related to his chronic narcotic use, but otherwise he denied any additional change in bowel habits. There was no diarrhea or obstipation. He denied any rectal bleeding, aside from scant BRB after straining at a bowel movement, attributed to narcotics and hemorrhoids. The patient is currently ambulating uneventfully, without any chest pain or shortness of breath. He is tolerating a regular heart healthy diet. The patient's 03/09/2017: Dipyridamole stress test showed negative preliminary results, but he is awaiting further nuclear images tomorrow, on 03/10/2017. There is a family history of ASHD. There is no family history of GI disease, GI malignancy, or inherited liver disease. 12/25/2014: *EGD/colonoscopy for GERD & diarrhea, per Dr. Pickard- Z line at 43 cm , normal esophageal mucosa, nonerosive gastritis, gastroparesis, gastric biopsies- unremarkable, H. pylori negative, random duodenal biopsy- normal villi. Mild left-sided diverticula, mild focal segmental colitis related to left-sided diverticula, random biopsies without colitis, mixed hemorrhoids, benign tubular adenoma 2 removed, the largest being 1 cm at 60 cm, with adenoma seen at the cauterized stalk, without malignancy. TI was not entered. 03/07/2017: Admission labs- WBC 4.9, H/H 15.1/45.7, normal MCV, PLT 177, close 129, BUN/Cr 10/0.6, GFR > 60, essentially normal electrolytes, including calcium 9.1, normal amylase/lipase 50/48, normal LFTs, including albumin 4.0, globulin 3.5, troponin < .01 x 2; U/A - essentially negative except for traceHgb and 30+ protein. 03/07/2017: EKG- SB @ 58, normal axis, 1st degree AVB, NSST inferiorly 03/07/2017: CT ABDOMEN AND PELVIS WITHOUT IV/PO CONTRAST- 1. Chronic hepatosplenomegaly (spleen 15 cm), and diffuse hepatic steatosis. Normal GB. No dilated ducts. 2. Diverticulosis of the sigmoid colon without diverticulitis. 3. No evidence of urolithiasis, appendicitis, ileitis, or other acute imaging abnormality compared to 09/09/2016. 4. Mesh in midline of abdominal wall. Chronic rectus diastases. Stable fat- containing supraumbilical hernia. 5. Stent within proximal LAD. 6. Mild ASHD of abdominal aorta, without aneurysm. 7. Chronic 3 mm LLL nodule. 8. DJD L-spine, most pronounced L5/L6 03/07/2017: XRY-PORTABLE CHEST XRAY- No acute pulmonary findings. 03/08/2017: Echocardiogram- LVEF 55-60%, without any obvious regional wall motion abnormalities, no significant valvulopathy except for minimal to mild TR/ NM, without pulmonary hypertension, no pericardial effusion. 03/09/2017: DIPYRIDAMOLE STRESS W/NUC IMAG- IMPRESSION: The test was supervised by the interpreting Direct Selling Counselor, who was in attendance during the entire test. No EKG evidence of stress induced myocardial ischemia. See separately dictated Nuclear Report. Allergies/Medications Allergies: Coded Allergies: venom-honey bee (bee venom (honey bee)) (SWELLING AT SITE 06/09/16) Uncoded Allergies: ENVIRONMENTAL (ITCHY, WATERY EYES, STUFFY NOSE, DYSPNEA 01/09/16) Home Med List: Atorvastatin Calcium 40 MG TABLET 40 MG PO 1700 CHOLESTEROL Clopidogrel Bisulfate (Clopidogrel) 75 MG TABLET 1 TAB PO DAILY BLOOD THINNER (Reported) Diazepam 10 MG TABLET 1 TAB PO PRN BACK SPASMS (Reported) Ergocalciferol (Vitamin D2) (Vitamin D2) 50,000 UNIT CAPSULE 50,000 IU PO ONCE A WEEK BONES EVERY TUESDAY Fluoxetine HCl (Unknown Strength) CAPSULE 20 MG PO DAILY MENTAL HEALTH ( Reported) Gabapentin 600 MG TABLET 1 TAB PO TID NERVE PAIN (Reported) Glipizide (Glipizide ER) 2.5 MG TAB.ER.24 1 TAB PO DAILY DM (Reported) Losartan/Hydrochlorothiazide (Hyzaar 100-25 Tablet) 100 MG-25 MG TABLET 1 TAB PO DAILY BP (Reported) Methadone HCl (Dolophine HCl) 10 MG TABLET 30 MG PO BID SPINAL STENOSIS/ HERNIATED DISC (Reported) Metoprolol Succinate 100 MG TAB.ER.24H 1 TAB PO DAILY HEART/BP (Reported) Pantoprazole Sodium (Protonix) 40 MG TABLET.DR 1 TAB PO DAILY GERD Secukinumab (Cosentyx (2 Syringes)) 150 MG/1 ML SYRINGE 2 INJ Q30D PSORIASIS (Reported) Current Medications: Current Medications Sig/Mani Start time Last Medication Dose Route Stop Time Status Admin Acetaminophen 500 MG Q6P PRN 03/07 2045 AC 03/09 PO 0713 Acetaminophen/ 1 TAB Q6P PRN 03/07 2045 AC Hydrocodone Bitart PO Atorvastatin Calcium 40 MG 1700 03/08 1700 AC 03/09 PO 1701 Clopidogrel Bisulfate 75 MG DAILY 03/08 1000 AC 03/09 PO 0936 Diazepam 10 MG Q12P PRN 03/07 2100 AC PO Dipyridamole 60 MG ONE ONE 03/09 1000 DC Dextrose/Water 28 ML IV 03/09 1029 Enoxaparin Sodium 40 MG DAILY 03/07 2033 AC 03/09 SC 0936 Ergocalciferol 50,000 IU ONCE A WEEK 03/09 1245 AC 03/09 PO 1659 Fluoxetine HCl 20 MG DAILY 03/08 1000 AC 03/09 PO 0936 Gabapentin 600 MG Q8 03/07 2200 AC 03/09 PO 1659 Hydrochlorothiazide 25 MG DAILY 03/08 1000 AC 03/09 PO 0936 Hydrocortisone 15 MG 0800 03/10 0800 AC PO Hydrocortisone 5 MG 1600 03/09 1600 AC 03/09 PO 1659 Hydrocortisone 25 MG BID 03/08 1400 DC 03/09 Sodium Succinate IV 0936 Insulin Aspart 0 TIDAC/HS 03/08 1700 AC 03/09 SC 1814 Losartan Potassium 100 MG DAILY 03/08 1000 AC 03/09 PO 0936 Methadone HCl 20 MG TID 03/08 1600 AC 03/09 PO 1700 Metoprolol Succinate 100 MG DAILY 03/08 1000 AC 03/09 PO 0937 Nitroglycerin 0.5 GM Q6 03/07 2359 AC 03/09 TOP 1702 Omeprazole 40 MG DAILY AC 03/08 0700 AC 03/09 PO 0530 Oxycodone/ 1 TAB Q6P PRN 03/07 2045 AC Acetaminophen PO Past History Travel History Traveled to [place] past 21 day No Medical History Blood Transfusion Hx: No Neurological: NONE EENT: NONE Cardiovascular: CAD, hypertension, hyperlipidemia, STENTS 2007 Respiratory: obstructive sleep apnea Gastrointestinal: GERD, umbilical hernia, diverticulosis coli, rectus diastasis Hepatic: fatty liver/HSM Renal: NONE Musculoskeletal: chronic back pain, disk herniation, degen joint disease, SPINAL STENOSIS ARTHRITIS Psychiatric: anxiety, depression Endocrine: diabetes (Type II), obesity, PRE-DIABETIC, Cushingoid Blood Disorders: NONE Cancer(s): NONE PARALEGAL/Reproductive: NONE Other Medical Hx: PSORIASIS Surgical History Surgical History: hernia repair-umbilical (05/08/16), heart stents in 2007 Family History Relations & Conditions If Any: FATHER (ASHD). Age 80. FH: HTN (hypertension) FH: myocardial infarction MOTHER (essential tremor). Age 80. FH: HTN (hypertension) FH: myocardial infarction Psychosocial History Where Do You Live? Home Who Do You Live With? spouse Services at Home: None Primary Language: Kuwaiti Smoking Status: Former Smoker (quit 2016; ex-15 pk yr) ETOH Use: denies use (previously heavy), occasional use Illicit Drug Use: denies illicit drug use (on Methadone (narc addiction)) Living Will? 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 1 son & 1 dtr- [employer] (the son with OCD). Ex-15 pk yr cigarette smoker, D/ C 2016. Mild EtOH, previously heavily. Denies street drugs. On Methadone for prescription narcotic addiction. Works at [employer]. Functional Ability ADLs Independent: dressing, eating, toileting, bathing. Ambulation: independent IADLs Independent: shopping, housework, finances, food prep, telephone, transportation , medication admin. Employment History Employment: Employed Profession/Employer: [employer] ECHO Results (as available) Date of last Echo 03/08/17 EF% 60 Review of Systems Review of Systems: Full 14 point review of systems otherwise noncontributory, and as above. Review of Systems Constitutional: Denies: chills, diaphoresis, fever, malaise, weakness, unexplained weight loss. EENTM: Denies: blurred vision, double vision, visual changes, eye pain, eye drainage, eye tearing, icterus, ear discharge, ear pain, ear redness, hearing changes, nasal congestion, epistaxis, nasal pain, throat pain, throat swelling, mouth pain, tooth pain. Cardiovascular: Denies: chest pain, edema, orthopena, palpitations, peripheral edema, syncope. Respiratory: Denies: cough, hemoptysis, orthopnea, short of breath, sputum production, stridor, wheezing. GI: Denies: no symptoms (reflux resolved), abdominal pain, bloating, constipation, diarrhea, distention, bowel incontinence, melena, nausea, bloody stool, changes in stool, vomiting, steatorrhea. Genitourinary: Denies: discharge, dysuria, frequency, hematuria, hesitation, nocturia, pain, urgency. Musculoskeletal: Reports: back pain. Denies: gout, joint pain, joint swelling, muscle pain, muscle stiffness, neck pain. Skin: Denies: cysts, change in skin color, change in hair/nails, dryness, erythema, jaundice, lesions, lymphangitis, lumps, moles, rash. Neurological/Psychological: Reports: anxiety, depressed, emotional problems. Denies: ataxia, cognitive dysfunction, confusion, dementia, headache, numbness, paresthesia, pre-existing deficit, petit mal seizures, tingling, tremors, tonic-clonic seizures, unable to move lower ext, unable to move upper ext, weakness. Hematologic/Endocrine: Denies: no symptoms (Cushingoid), bruising, bleeding, polyuria, polydipsia. Immunologic/Allergic: Denies: splenectomy, HIV/AIDS, lymphadenopathy. All Other Systems: Reviewed and Negative Exam & Diagnostic Data Vital Signs and I&O Vital Signs Date Time Temp Pulse Resp B/P Pulse O2 O2 Flow FiO2 Ox Delivery Rate 03/09 1457 97.5 58 18 118/68 95 Room Air 03/09 0937 62 120/86 03/09 0936 120/86 03/09 0800 97.5 56 20 120/86 97 Room Air 03/09 0800 97.5 56 20 120/86 97 Room Air 03/09 0522 59 144/102 94 Room Air 03/09 0028 97.6 58 20 118/92 93 Room Air 03/08 1932 60 112/60 Intake & Output 03/09 1600 03/09 0400 03/08 1600 03/08 0400 03/07 1600 03/07 0400 Intake Total 80 610 Output Total Balance 80 610 Intake, IV 10 Intake, Oral 80 600 Patient 280 lb 280 lb Weight Physical Exam: Well-developed, well-nourished, obese, Cushingoid male, in no apparent distress. Sclera anicteric. Conjunctiva pink. Oropharynx clear. No oral thrush. No aphthous ulcers. There is no adenopathy, thyromegaly, or JVD. No peripheral stigmata of inflammatory bowel disease or chronic liver disease on exam. No spiders on the anterior chest wall. No gynecomastia. No CVA tenderness. Lungs : clear to A&P. Heart exam: regular rate rhythm, S1 and S2, without any murmur, rubs or gallop. No CWT. Abdominal exam: normal bowel sounds, soft belly, obese, mildly distended, nontender without guarding or rebound. Reducible small umbilical hernia/rectus diastasis, otherwise no mass. Liver approximately 17 cm by percussion. Positive spleen tip. Negative Cintron sign. No fluid shift. No pulsatile mass. No epigastric bruit. Digital rectal exam: deferred by patient ( "OB-negative at PMD within past 2 months," per patient). Extremities: without C, C, or E. No palpable cords. DJD. No palmar erythema. No Dupuytren's contractures (slightly deformed right pinky). Distal pulses 2+ bilaterally. DTRs 2+ bilaterally. Alert and oriented x 3. No tremor. No asterixis. Results Pertinent Lab Results: Laboratory Tests 03/08 03/07 0620 2302 Chemistry Sodium (137 - 145 mmol/L) 137 Potassium (3.5 - 5.1 mmol/L) 4.0 Chloride (98 - 107 mmol/L) 97 L Carbon Dioxide (22 - 30 mmol/L) 31 H Anion Gap (5 - 16) 9 BUN (9 - 20 mg/dL) 17 Creatinine (0.7 - 1.2 mg/dL) 0.7 Estimated GFR (>60 ml/min) > 60 BUN/Creatinine Ratio (7 - 25 %) 24.3 Troponin I (<0.11 ng/ml) < 0.01 Cortisol AM Sample (4.46 - 22.7 ug/dL) 3.6 L Hematology CBC w Diff NO MAN DIFF REQ WBC (4.8 - 10.8 /CUMM) 7.1 RBC (4.70 - 6.10 /CUMM) 5.51 Hgb (14.0 - 18.0 G/DL) 15.1 Hct (42 - 52 %) 45.4 MCV (80.0 - 94.0 FL) 82.4 MCH (27.0 - 31.0 PG) 27.5 RDW (11.5 - 14.5 %) 15.1 H Plt Count (130 - 400 /CUMM) 190 MPV (7.4 - 10.4 FL) 7.2 L Gran % (42.2 - 75.2 %) 69.0 Lymphocytes % (20.5 - 51.1 %) 21.4 Monocytes % (1.7 - 9.3 %) 7.8 Eosinophils % (0 - 5 %) 1.4 Basophils % (0.0 - 2.0 %) 0.4 Absolute Granulocytes (1.4 - 6.5 /CUMM) 4.9 Absolute Lymphocytes (1.2 - 3.4 /CUMM) 1.5 Absolute Monocytes (0.10 - 0.60 /CUMM) 0.6 Absolute Eosinophils (0.0 - 0.7 /CUMM) 0.1 Absolute Basophils (0.0 - 0.2 /CUMM) 0 PUBS MCHC (33.0 - 37.0 G/DL) 33.3 03/07 1715 Chemistry Troponin I (<0.11 ng/ml) < 0.01 Urines Urine Color (YEL,AMB,STR) YEL Urine Clarity (CLEAR) CLEAR Urine pH (5.0 - 8.0) 5.5 Ur Specific Bennett (1.001 - 1.035) >= 1.030 Urine Protein (NEG,<30 MG/DL) 30 H Urine Ketones (NEG) NEG Urine Nitrite (NEG) NEG Urine Bilirubin (NEG) NEG Urine Urobilinogen (0.1 - 1.0 EU/dl) 0.2 Ur Leukocyte Esterase (NEG) NEG Ur Microscopic SEDIMENT EXAMINED Urine RBC (0 - 5 /HPF) RARE Urine Bacteria (NEG/NONE) RARE H Hyaline Casts (0/LPF) 5-10 H Urine Mucus (FEW,NONE) FEW Urine Hemoglobin (NEG) TRACE-INTACT H Urine Glucose (N MG/DL) NEG 03/07 1308 Chemistry Sodium (137 - 145 mmol/L) 137 Potassium (3.5 - 5.1 mmol/L) 3.8 Chloride (98 - 107 mmol/L) 96 L Carbon Dioxide (22 - 30 mmol/L) 30 Anion Gap (5 - 16) 11 BUN (9 - 20 mg/dL) 10 Creatinine (0.7 - 1.2 mg/dL) 0.6 L Estimated GFR (>60 ml/min) > 60 BUN/Creatinine Ratio (7 - 25 %) 16.7 Glucose (65 - 99 mg/dL) 129 H Calcium (8.4 - 10.2 mg/dL) 9.1 Total Bilirubin (0.2 - 1.3 mg/dL) 0.6 AST (17 - 59 U/L) 34 ALT (21 - 72 U/L) 58 Alkaline Phosphatase (< 127 U/L) 107 Troponin I (<0.11 ng/ml) < 0.01 Total Protein (6.3 - 8.2 g/dL) 7.5 Albumin (3.5 - 5.0 g/dL) 4.0 Globulin (1.9 - 4.2 gm/dL) 3.5 Albumin/Globulin Ratio (1.1 - 2.2 %) 1.1 Amylase (30 - 110 U/L) 50 Lipase (23 - 300 U/L) 48 Hematology CBC w Diff NO MAN DIFF REQ WBC (4.8 - 10.8 /CUMM) 4.9 RBC (4.70 - 6.10 /CUMM) 5.58 Hgb (14.0 - 18.0 G/DL) 15.1 Hct (42 - 52 %) 45.7 MCV (80.0 - 94.0 FL) 82.0 MCH (27.0 - 31.0 PG) 27.1 RDW (11.5 - 14.5 %) 14.8 H Plt Count (130 - 400 /CUMM) 177 MPV (7.4 - 10.4 FL) 7.1 L Gran % (42.2 - 75.2 %) 60.4 Lymphocytes % (20.5 - 51.1 %) 28.5 Monocytes % (1.7 - 9.3 %) 9.1 Eosinophils % (0 - 5 %) 1.3 Basophils % (0.0 - 2.0 %) 0.7 Absolute Granulocytes (1.4 - 6.5 /CUMM) 3.0 Absolute Lymphocytes (1.2 - 3.4 /CUMM) 1.4 Absolute Monocytes (0.10 - 0.60 /CUMM) 0.4 Absolute Eosinophils (0.0 - 0.7 /CUMM) 0.1 Absolute Basophils (0.0 - 0.2 /CUMM) 0 PUBS MCHC (33.0 - 37.0 G/DL) 33.0 Imaging/Other Studies: 03/07/2017: EKG- SB @ 58, normal axis, 1st degree AVB, NSST inferiorly 03/07/2017: CT ABDOMEN AND PELVIS WITHOUT IV/PO CONTRAST- 1. Chronic hepatosplenomegaly (spleen 15 cm), and diffuse hepatic steatosis. Normal GB. No dilated ducts. 2. Diverticulosis of the sigmoid colon without diverticulitis. 3. No evidence of urolithiasis, appendicitis, ileitis, or other acute imaging abnormality compared to 09/09/2016. 4. Mesh in midline of abdominal wall. Chronic rectus diastases. Stable fat- containing supraumbilical hernia. 5. Stent within proximal LAD. 6. Mild ASHD of abdominal aorta, without aneurysm. 7. Chronic 3 mm LLL nodule. 8. DJD L-spine, most pronounced L5/L6 03/07/2017: XRY-PORTABLE CHEST XRAY- No acute pulmonary findings. 03/08/2017: Echocardiogram- LVEF 55-60%, without any obvious regional wall motion abnormalities, no significant valvulopathy except for minimal to mild TR/ NM, without pulmonary hypertension, no pericardial effusion. 03/09/2017: DIPYRIDAMOLE STRESS W/NUC IMAG- IMPRESSION: The test was supervised by the interpreting Direct Selling Counselor, who was in attendance during the entire test. No EKG evidence of stress induced myocardial ischemia. See separately dictated Nuclear Report. Assessment/Plan Assessment/Recommendations: 52 y/o male, HTN/AODM/HLD/ANGELA/obese/hypogonadism/DJD/HD/chronic low back pain- previously addicted to narcotics (currently on Methadone 30 mg BID)/past hx EtOH abuse/ex-15-pk yr cigarette smoker, stopping 2015/anxiety & depression/ Cushingoid/psoriasis on Cosentyx (monoclonal Ab), with history of ASHD- on Plavix, post proximal LAD stent 2007. He was subsequently recathed in 2008 & 2010, showing patent stent, but residual 50-70% distal LAD stenosis. 2016: Pharmacologic nuclear stress test done preoperatively- inferior abnormalities, felt to be diaphragmatic artifact. The patient tolerated surgery uneventfully then. He presented to the [facility] 11:59 AM on 03/07/2017, complaining of waxing and waning indigestion since 03/05/2017, for which he took Pepto-Bismol and Protonix , with incomplete relief. He also had left upper extremity numbness & epigastric/xiphoid pain, not typical of his cardiac symptoms, and more suggestive of his GERD, but the left upper extremity numbness caused some concern, prompting him to go to the ER. He was treated with Pepcid, GI cocktail , Nitroglycerin, Protonix, Toradol, Toprol, Losartan, and HCTZ, with partial relief. *His initial troponin was negative. *Admission EKG- NSR without change. The nitroglycerin reportedly helped more than the GI cocktail. There was no nausea, vomiting, odynophagia, dysphagia, hematemesis, early satiety, weight loss, change in appetite, fevers chills or jaundice. He denied any FFI. 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 He currently is on Oxycodone as needed, in addition to Methadone. The patient has mild chronic constipation related to his chronic narcotic use, but otherwise he denied any additional change in bowel habits. There was no diarrhea or obstipation. He denied any rectal bleeding, aside from scant BRB after straining at a bowel movement, attributed to narcotics and hemorrhoids. The patient is currently ambulating uneventfully, without any chest pain or shortness of breath. He is tolerating a regular heart healthy diet. The patient's 03/09/2017: Dipyridamole stress test showed negative preliminary results, but he is awaiting further nuclear images tomorrow, on 03/10/2017. There is a family history of ASHD. There is no family history of GI disease, GI malignancy, or inherited liver disease. 12/25/2014: *EGD/colonoscopy for GERD & diarrhea, per Dr. Pickard- Z line at 43 cm , normal esophagealmucosa, nonerosive gastritis, gastroparesis, gastric biopsies - unremarkable, H. pylori negative, random duodenal biopsy- normal villi. Mild left-sided diverticula, mild focal segmental colitis related to left-sided diverticula, random biopsies without colitis, mixed hemorrhoids, benign tubular adenoma 2 removed, the largest being 1 cm at 60 cm, with adenoma seen at the cauterized stalk, without malignancy. TI was not entered. 03/07/2017: Admission labs- WBC 4.9, H/H 15.1/45.7, normal MCV, PLT 177, close 129, BUN/Cr 10/0.6, GFR > 60, essentially normal electrolytes, including calcium 9.1, normal amylase/lipase 50/48, normal LFTs, including albumin 4.0, globulin 3.5, troponin < .01 x 2; U/A - essentially negative except for traceHgb and 30+ protein. 03/07/2017: EKG- SB @ 58, normal axis, 1st degree AVB, NSST inferiorly 03/07/2017: CT ABDOMEN AND PELVIS WITHOUT IV/PO CONTRAST- 1. Chronic hepatosplenomegaly (spleen 15 cm), and diffuse hepatic steatosis. Normal GB. No dilated ducts. 2. Diverticulosis of the sigmoid colon without diverticulitis. 3. No evidence of urolithiasis, appendicitis, ileitis, or other acute imaging abnormality compared to 09/09/2016. 4. Mesh in midline of abdominal wall. Chronic rectus diastases. Stable fat- containing supraumbilical hernia. 5. Stent within proximal LAD. 6. Mild ASHD of abdominal aorta, without aneurysm. 7. Chronic 3 mm LLL nodule. 8. DJD L-spine, most pronounced L5/L6 03/07/2017: XRY-PORTABLE CHEST XRAY- No acute pulmonary findings. 03/08/2017: Echocardiogram- LVEF 55-60%, without any obvious regional wall motion abnormalities, no significant valvulopathy except for minimal to mild TR/ NM, without pulmonary hypertension, no pericardial effusion. 03/09/2017: DIPYRIDAMOLE STRESS W/NUC IMAG- IMPRESSION: The test was supervised by the interpreting Direct Selling Counselor, who was in attendance during the entire test. No EKG evidence of stress induced myocardial ischemia. See separately dictated Nuclear Report. *The patient has had a relatively recent GI workup, with 12/25/2014: EGD/ colonoscopy- as above. He also has underlying ASHD. His symptoms seem to be GI > cardiac in nature. 03/08/2017: Nuclear stress test- negative (preliminary results), with repeat nuclear images- pending. From a GI perspective, potential causes include GERD vs. esophageal dysmotility vs. reflux-induced spasm, rule out PUD. Additionally, the patient has a nonobstructing supraumbilical hernia, rectus diastases, diverticulosis without diverticulitis, fatty liver, and chronic HSM. CT without evidence of AAA. The above does not appear to be pancreatic or biliary in nature. SUGGEST: Increase PPI to BID. Await delayed nuclear images of 03/09/2017: Dipyrimadole EST. Further inpatient cardiac workup as deemed fit, per Dr. Heredia. Assuming the patient is cleared by cardiology, consideration for possible repeat outpatient EGD vs. esophageal manometry/24 hour impedance study. Consider checking stool antigen for H. pylori, although this could be falsely negative on PPI. Risk factor modification for fatty liver, including strict control of body weight, blood pressure, blood sugar, & lipids. Minimize EtOH. Consider Vitamin E 800 IU po daily. D/C NSAIDs (i.e.- Toradol). The above findings and recommendations were discussed with the medical house staff and with Dr. Manzanares. Further inpatient GI follow up as needed. The patient was told to follow up with his usual speech/language therapist, Dr. Pickard, after discharge. Problem List: 1. GERD (gastroesophageal reflux disease) 2. Atypical chest pain 3. Umbilical hernia 4. Rectus diastasis 5. Fatty liver 6. Hepatosplenomegaly 7. History of adenomatous polyp of colon 8. Diverticula of colon Copies To: RADHA HUGHES,PETE; ABIODUN HUGHES,BEAN Vinson; JUDY HUGHES,IVON; BELLE HUGHES,Deandre LAYTON; NORMA PICKARD MD; ROLANDO HUGHES,SUGAR; MARY LOU HUGHES,DOVER Calvin Consult Acknowledgment - Thank you for your consult request.
[2017-03-09 19:42] VITALS: BP 102/68
[2017-03-09 23:00] VITALS: BP 104/62
--- NOTE | 2017-03-10 07:40 | PN- Housestaff ---
MARSHALL HUGHES,[place] 03/10/17 0740: Subjective Follow-up For: Continuing observation for chest pain/epigastric pain Complaints: no complaints Tele-Events Since Last Visit: Sinus rhythm, sinus bradycardia, first-degree heart block with ND interval 0.28 and 0.24, heart rate ranging from 52-64. Subjective: I followed up and examined the patient today. He is resting comfortably in bed, not in distress, does not have any complaints, vitals have been stable other than bradycardia, no overnight events. Specifically, he does not have any chest pain or epigastric discomfort anymore. Review of Systems Constitutional: Reports: see HPI. Objective Last 24 Hrs of Vital Signs/I&O Vital Signs Date Time Temp Pulse Resp B/P Pulse O2 O2 Flow FiO2 Ox Delivery Rate 03/09 2300 98.4 68 20 104/62 98 Room Air 03/09 1942 98.0 63 18 102/68 94 Room Air 03/09 1457 97.5 58 18 118/68 95 Room Air 03/09 0937 62 120/86 03/09 0936 120/86 03/09 0800 97.5 56 20 120/86 97 Room Air 03/09 0800 97.5 56 20 120/86 97 Room Air Intake & Output 03/10 0800 03/10 0000 03/09 1600 Intake Total 350 450 30 Output Total Balance 350 450 30 Intake, IV 0 0 Intake, Oral 350 450 30 Number 0 0 Bowel Movements Physical Exam General Appearance: Alert, Oriented X3, Cooperative, No Acute Distress, morbidly obese Other Physical Findings: Skin No Rashes, No Breakdown, No Significant Lesion HEENT Hernandez-facies, atraumatic, EOMI, Mucous Membr. moist/pink Neck Supple, No JVD, buffalo hump Cardiovascular Regular Rate, Normal S1, Normal S2 Lungs Clear to Auscultation anteriorly, Normal Air Movement Abdomen Soft, No Tenderness Neurological grossly intact Extremities No Edema, Normal Pulses, No Tenderness/Swelling Vascular Pulses Symmetrical Current Medications: Current Medications Sig/Mani Start time Last Medication Dose Route Stop Time Status Admin Acetaminophen 500 MG Q6P PRN 03/07 2045 AC 03/09 PO 07 Acetaminophen/ 1 TAB Q6P PRN 03/07 2045 AC Hydrocodone Bitart PO Atorvastatin Calcium 40 MG 1700 03/08 1700 AC 03/09 PO 1701 Clopidogrel Bisulfate 75 MG DAILY 03/08 1000 AC 03/09 PO 0936 Diazepam 10 MG Q12P PRN 03/07 2100 AC PO Dipyridamole 60 MG ONE ONE 03/09 1000 DC Dextrose/Water 28 ML IV 03/09 1029 Enoxaparin Sodium 40 MG DAILY 03/07 2033 AC 03/09 SC 0936 Ergocalciferol 50,000 IU ONCE A WEEK 03/09 1245 AC 03/09 PO 1659 Fluoxetine HCl 20 MG DAILY 03/08 1000 AC 03/09 PO 0936 Gabapentin 600 MG Q8 03/07 2200 AC 03/10 PO 0617 Hydrochlorothiazide 25 MG DAILY 03/08 1000 AC 03/09 PO 0936 Hydrocortisone 15 MG 0800 03/10 0800 AC PO Hydrocortisone 5 MG 1600 03/09 1600 AC 03/09 PO 1659 Hydrocortisone 25 MG BID 03/08 1400 DC 03/09 Sodium Succinate IV 0936 Insulin Aspart 0 TIDAC/HS 03/08 1700 AC 03/09 SC 1814 Losartan Potassium 100 MG DAILY 03/08 1000 AC 03/09 PO 0936 Methadone HCl 20 MG TID 03/08 1600 AC 03/09 PO 2220 Metoprolol Succinate 100 MG DAILY 03/08 1000 AC 03/09 PO 0937 Nitroglycerin 0.5 GM Q6 03/07 2359 AC 03/09 TOP 1702 Omeprazole 40 MG BID 03/09 2200 AC 03/09 PO 2221 Omeprazole 40 MG DAILY AC 03/08 0700 DC 03/09 PO 0530 Oxycodone/ 1 TAB Q6P PRN 03/07 2045 AC Acetaminophen PO Vitamin E 800 IU DAILY 03/09 1904 AC 03/09 PO 2220 Assessment/Plan Assessment: Patient is a 52 year old gentleman with PMH of HTN, HLD, CAD s/p stents placed in 2007, DM, psoriasis, GERD, who came to the ED due to 3 days of having heartburn and abdominal pain. He also reported a transient numbness and tingling in the left arm. Continuing to observe and manage the patient in telemetry floor for the following issues: #Atypical chest pain Mostly heartburn and a transient left arm tingling sensation, no chest tightness , diaphoresis or dizziness; and as he has an extensive medical history including cardiac, ACS was ruled out with three sets of troponin and EKG being negative. His pain did appear to be less with NTG, which can mean cardiac source or GI source like an esophageal spasm. * Continue to monitor on telemetry * ECHO showed EF: 55-60%, was limited study. * Cardiology consult with Dr. Heredia appreciated * Patient underwent Persantine stress test yesterday, but due to technical reason, the study could not be completed yesterday and he is undergoing rest of the study later today. Of note, he did not have any EKG abnormalities during the test as noted in Eva Heredia MD's note from yesterday. Of note: CTPMP checked on 03/09/17, and he has significant controlled substance/ pain meds being prescribed. His pain scale here has been low without oversedation or side effects. #Diabetes * Hba1c was high, and following Dr. lara for endocrinology consult. Appreciate her input. * Continue accuchecks TID AC * Continue NSS * Outpatient antidiabetic medication has been suggested by Dr. Lara as glipizide ER 2.5 daily. And no insulin. #Adrenal insufficiency, secondary to exogenous steroid Patient is being replaced with hydrocortisone, received his first dose on via intravenous route, but is now getting oral hydrocortisone 50 mg in the morning and 5 mg at 4 PM every day per Dr Lara's recommendations. * Plan to pursue outpatient MRI of pituitary. #Patient also has low vitamin D, requiring a DEXA scan as outpatient. #HTN, HLD * Continue metoprolol XR 100 mg daily * Continue Losartan 100 mg daily today * Continue atorvastatin 40 mg daily #GERD * Per GI services consult yesterday, PPI dose has been increased from once to twice daily, added vitamin D 800 units by mouth daily, Toradol discontinued. * Awaiting stool antigen test for H. pylori * Appreciated gastroenterology service consult #Psoriasis Patient uses topical steroids and receives Secukinumab injections Q30 days. #Diet * cc3 Pain: tylenol, vicodin, percocet DVT ppx: SC lovenox Full code status Problem List: 1. Chest pain, unspecified 2. GERD (gastroesophageal reflux disease) 3. HISTORY OF CAD WITH STENT 4. Diabetes mellitus type 2 5. Chronic low back pain 6. Psoriasis Pain Ratin Pain Location: - Pain Goal: Pain 4 or less Pain Plan: prn Tomorrow's Labs & Rationales: - IVON KIM MD 03/10/17 6788: Attending MD Review Statement Attending Statement Attending MD Statement: examined this patient, discuss w/resident/PA/[employer], agreed w/resident/PA/[employer], discussed with family, reviewed EMR data (avail), discussed with nursing, discussed with case mgmt, reviewed images, amended to note Attending Assessment/Plan: The patient was seen and discussed with house staff and Cardiology. Rest myocardial perfusion scan was delayed due to technical difficulty with gamma camera, however completed and showed small fixed inferoapical defect with good wall motion and thickening. No evidence of ischemia. OK to discharge home today. The patient continues with mild dysuria, however improved (?stone).
[2017-03-10 08:06] VITALS: BP 120/80
[2017-03-10] MEDS ORDERED: CORTEF5 M1 PO ×4 (08:55→15:29)
[2017-03-10] MEDS ORDERED: PROTONIX40 M3 PO (08:55)
--- NOTE | 2017-03-10 09:35 | PN- Diabetes ---
Assessment/Plan Assessment: Patient has had a very complicated past medical history including chronic back pain due to herniated discs and degenerative changes s/p multiple surgical procedures and has been on ? steroid injections on an average every 4 months for years, psoriasis on Cosentyx injection once a month and steroid cream, diabetes type 2 with HbA1c of 7.0% on Glipizide 2.5 mg daily ( Hx of metformin intolerance), chronic pain management currently on Methadone 80 mg daily, hypogonadism, sleep apnea and hypertension, was feeling exhausted lately, was admitted for chest discomfort and nausea. His Cushingoid appearance most likely is due to the chronic correction exogenous steroid uses which also suppresses his own adrenal function. Additionally, the chronic pain medication including Methadone suppresses his pituitary function and his testosterone level was low. He will be on testosterone replacement as outpatient. I will arrange pituitary MRI and DEXA as outpatient. His vitamin D level was very low and he was put on vitamin D2 50,000 units once a week. Patient has secondary adrenal insufficiency and he was placed on stress dose of streroid on 03/08/2017. Now he is on hydrocortisone 15 mg 8 am and 5 mg at 4 pm. With regards to DM, he is on Novolog coverage before meals and Novolog coverage at bedtime. His FSGs were 108, 112, 169 and 97. Plan: 1. secondary adrenal insufficiency: ---continue hydrocortisone 15 mg am and 5 mg at 4 pm; ---will arrange pituitary MRI as outpatient to r/o any pituitary and hypothalamus lesions; 2. hypogonadism: --- will restart testosterone replacement as out patient. 3. risk of osteoporosis has been discussed with patient. ---arrange DEXA as outpatient; ---continue vitamin D2 50,000 units once a week x 6-8 weeks and then vitamin D2 50,000 units once every two weeks for maintenance. 4. DM: continue the current Novolog coverage in the hospital. If he is medically stable for dischargem, he will be on Glipizide ER 2.5 mg daily. No insulin. 5. f/u in office after discharge. Subjective Subjective: He probably will go home today. Objective Last 24 Hrs of Vital Signs/I&O Vital Signs Date Time Temp Pulse Resp B/P Pulse O2 O2 Flow FiO2 Ox Delivery Rate 03/10 0806 98.2 57 18 120/80 93 Room Air 03/09 2300 98.4 68 20 104/62 98 Room Air 03/09 1942 98.0 63 18 102/68 94 Room Air 03/09 1457 97.5 58 18 118/68 95 Room Air Intake & Output 03/10 1600 03/10 0800 03/10 0000 Intake Total 350 450 Output Total Balance 350 450 Intake, IV 0 0 Intake, Oral 350 450 Number 0 0 Bowel Movements
[2017-03-10 11:11] VITALS: BP 120/80
--- NOTE | 2017-03-10 14:47 | NUCLEAR MEDICINE REPORT ---
PERSANTINE STRESS AND RESTING SPECT MYOCARDIAL PERFUSION IMAGING STUDY WITH GATED SPECT IMAGES: CLINICAL INDICATION: Chest pain. PROCEDURE: Regional myocardial perfusion was assessed using a 2 day protocol. Stress images were obtained on 03/09/2017 following the intravenous administration of 45.7 mCi Tc 99m Myoview. Stress consisted of 60 mg Persantine given intravenously. Following the sestamibi injection, 125 mg aminophylline was given intravenously. Rest images were obtained 03/10/2017 following the intravenous administration of 46.5 mCi Technetium 99m Myoview. Single photon emission tomographic (SPECT) images were obtained. SPECT images were acquired in a 64 x 64 matrix of 64 projections over 180 degrees. These were reconstructed into standard short axis, horizontal and vertical long axis cardiac projections. FINDINGS: The post stress images show the left ventricular chamber to be normal in size. There is a mild diffuse decrease in activity in the inferior wall. This is probably due to attenuation by the adjacent diaphragm, and this can be visualized on review of the raw acquired projections. Activity in the other cardenas appears normal. The rest images are not significantly changed from the post stress images. The images were obtained using a gated SPECT technique, which permits visualization of wall motion and calculation of the left ventricular ejection fraction. The left ventricular chamber is normal in size. No left ventricular wall motion abnormalities are present. The calculated left ventricular ejection fraction is 51% on the stress study. Compared to the previous study dated 04/08/2016, the appearance of the inferior wall has not significantly changed no abnormality present in the mid and basal inferoseptal wall on the previous study is not present on the current study. The gated images from the previous study are not available for review and the wall motion cannot be compared. Ejection fraction is not significantly changed from the previous study when is 53%. IMPRESSION: A stable appearing fixed perfusion abnormality in the inferior wall is noted. The wall motion in this region appears normal, and this is probably due to attenuation by the adjacent diaphragm although a fixed perfusion abnormality at this site cannot be entirely ruled out. No other significant perfusion abnormalities are noted. Mid and basal inferoseptal wall abnormality present on the previous study which was partially reversible, is no longer present on the current study. Left ventricular wall motion and ejection fraction are normal.
[2017-03-10] MEDS ORDERED: PHENAZOPYRIDIN100 M3 PO (15:20)
[2017-03-10] MEDS ORDERED: VITAMIN E400 UNI1 PO (15:20)
--- NOTE | 2017-03-10 19:23 | PN- Cardiology ---
Subjective Subjective: Doing well today. No symptoms. Final nuclear images today. Objective Vital Signs and I&Os Vital Signs Date Time Temp Pulse Resp B/P Pulse O2 O2 Flow FiO2 Ox Delivery Rate 03/10 1111 64 120/80 03/10 1110 120/80 03/10 0806 98.2 57 18 120/80 93 Room Air 03/09 2300 98.4 68 20 104/62 98 Room Air 03/09 1942 98.0 63 18 102/68 94 Room Air Intake & Output 03/10 1600 03/10 0800 03/10 0000 03/09 1600 03/09 0800 03/09 0000 Intake Total 720 350 450 30 50 610 Output Total Balance 720 350 450 30 50 610 Intake, IV 0 0 10 Intake, Oral 720 350 450 30 50 600 Number 0 0 Bowel Movements Current Medications: Current Medications Sig/Mani Start time Last Medication Dose Route Stop Time Status Admin Acetaminophen 500 MG Q6P PRN 03/07 2045 DCD 03/09 PO 0713 Acetaminophen/ 1 TAB Q6P PRN 03/07 2045 DCD Hydrocodone Bitart PO Atorvastatin Calcium 40 MG 1700 03/08 1700 DCD 03/09 PO 1701 Clopidogrel Bisulfate 75 MG DAILY 03/08 1000 DCD 03/10 PO 1110 Diazepam 10 MG Q12P PRN 03/07 2100 DCD PO Enoxaparin Sodium 40 MG DAILY 03/07 2033 DCD 03/10 SC 1109 Ergocalciferol 50,000 IU ONCE A WEEK 03/09 1245 DCD 03/09 PO 1659 Fluoxetine HCl 20 MG DAILY 03/08 1000 DCD 03/10 PO 1110 Gabapentin 600 MG Q8 03/07 2200 DCD 03/10 PO 0617 Hydrochlorothiazide 25 MG DAILY 03/08 1000 DCD 03/10 PO 1110 Hydrocortisone 15 MG 0800 03/10 0800 DCD 03/10 PO 1111 Hydrocortisone 5 MG 1600 03/09 1600 DCD 03/09 PO 1659 Insulin Aspart 0 TIDAC/HS 03/08 1700 DCD 03/09 SC 1814 Losartan Potassium 100 MG DAILY 03/08 1000 DCD 03/10 PO 1110 Methadone HCl 20 MG TID 03/08 1600 DCD 03/10 PO 1110 Metoprolol Succinate 100 MG DAILY 03/08 1000 DCD 03/10 PO 1111 Nitroglycerin 0.5 GM Q6 03/07 2359 DCD 03/09 TOP 1702 Omeprazole 40 MG BID 03/09 2200 DCD 03/10 PO 1110 Oxycodone/ 1 TAB Q6P PRN 03/07 2045 DCD Acetaminophen PO Phenazopyridine HCl 100 MG TID PRN 03/10 1145 DCD PO Vitamin E 800 IU DAILY 03/09 1904 DCD 03/09 PO 2220 Assessment/Plan Assessment/Plan Assessment: 1. Chest pain syndrome - At the present time the patient's symptoms are of unclear etiology. The patient feels that they are likely GI in nature with frequent belching and a sense of nausea. He had temporary relief with GI cocktail, etc but the symptoms recurred. He also had transient improvement with TNG SL. I suspect that the symptoms are unlikely to be cardiac in nature in view of their protracted nature with no ECG changes or troponin elevation. However, he does have a history of distal LAD disease and apical abnormalities may be electrocardiographically "silent". 2. History of CAD; History of LAD stent 2007 3. HTN 4. HLD 5. ANGELA 6. GERD Recommendations: -COntinue current management -Further plans after stress test results. Continue telemetry? No
== END 2017-03-10 16:25 ==
LOC: ENRESERVDT → ENRESERVTM → ERH 11:59 → ERHI 18:36 → 1NO 18:36 → ERHI 18:36 → ENPENDDIS 18:36 → 1NO 03-08 16:33
PROVIDERS: Emergency Medicine; Internal Medicine Hematology & Oncology; ADMIT Internal Medicine
DX: R07.89 Other chest pain (principal); I25.10 Atherosclerotic heart disease of native coronary artery without angina pectoris; I10 Essential (primary) hypertension; E11.8 Type 2 diabetes mellitus with unspecified complications; Z79.4 Long term (current) use of insulin; E78.5 Hyperlipidemia, unspecified; K21.9 Gastro-esophageal reflux disease without esophagitis; R16.2 Hepatomegaly with splenomegaly, not elsewhere classified; K57.90 Diverticulosis of intestine, part unspecified, without perforation or abscess without bleeding; G47.33 Obstructive sleep apnea (adult) (pediatric)
CPT/HCPCS: 87338; 74176; 78452; 81001; 82436; 87086; 93005; 93010; 93016; 93017; 93306; 96372; 96374; 96375; A9502; G0378; J1245; J1650; J1720; J1885; J3490; J7508